=== PATIENT | male | born 1960 | race Asian ===

== ENCOUNTER 2018-03-24 14:49 | Observation (INO) | payer OTHER ==
[~2018-03-24] VITALS: Ht 170.2 cm; Wt 70.0 kg
[2018-03-24 15:38] VITALS: BP 126/72; PULSE 74; RESP 16; TEMP 98; O2SAT 95
[2018-03-24] MEDS ORDERED: SODIUM CHLOR 0.9% 1000 ML INJ 1,000 ML IV ONE ×2 (16:28→18:00)
[2018-03-24] MEDS ORDERED: SODIUM CHLORIDE 0.9% FLUSH 10 ML FLUSH IVF PRN (16:30)
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
--- NOTE | 2018-03-24 17:32 | RADRPT ---
EXAM DATE: 03/24/2018 5:24 PM EDT AGE/SEX: 57 years / Male INDICATIONS: Found unresponsive CLINICAL DATA: This is the patient's initial encounter. Patient reports that signs and symptoms have been present for 1 day and indicates a pain score of Nonresponsive. MEDICAL/SURGICAL HISTORY: Non-responsive. Non-responsive. RADIATION DOSE: 66.34 CTDI (mGy) COMPARISON: No prior exams available for comparison. TECHNIQUE: CT of the head without contrast. Using automated exposure control and adjustment of the mA and/or kV according to patient size, radiation dose was kept as low as reasonably achievable to ob tain optimal diagnostic quality images. FINDINGS: Porencephaly right orbital frontal region. Minimal porencephalic changes right occipital region. Lacu kash infarct basal ganglia left side. There is no parenchymal hemorrhage mass effect or midline shift. Ventricular size is appropriate. Posterior fossa is unremarkable. CONCLUSION: 1. 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 2. Negative for an acute process. Electronically signed by: Shalom Petersen MD 03/24/2018 5:30 PM EDT
[2018-03-24 17:41] LABS: AUTOMATED NEUTROPHIL # 17.7 TH/MM3 (1.8-7.7); BASOPHIL # 0.1 TH/MM3 (0-0.2); BASOPHIL % 0.3 % (0.0-2.0); EOSINOPHIL # 0.1 TH/MM3 (0-0.4); EOSINOPHIL % 0.3 % (0.0-4.0); HEMATOCRIT 48.2 % (39.0-51.0); HEMOGLOBIN 16.6 GM/DL (13.0-17.0); LYMPH % 4.4 % (9.0-44.0); LYMPHOCYTE # 0.9 TH/MM3 (1.0-4.8); MEAN CELL VOLUME 87.1 FL (80.0-100.0); MEAN CORPUSCULAR HGB CONC 34.4 % (32.0-36.0); MEAN PLATELET VOLUME 8.9 FL (7.0-11.0); MONO % 3.9 % (0.0-8.0); MONOCYTE # 0.7 TH/MM3 (0-0.9); NEUT % 91.1 % (16.0-70.0); PLATELET COUNT 259 TH/MM3 (150-450); RED BLOOD COUNT 5.54 MIL/MM3 (4.50-5.90); RED CELL DISTRIBUTION WIDTH 12.7 % (11.6-17.2); WHITE BLOOD COUNT 19.4 TH/MM3 (4.0-11.0)
--- NOTE | 2018-03-24 17:50 | RADRPT ---
EXAM DATE: 03/24/2018 5:01 PM EDT AGE/SEX: 57 years / Male INDICATIONS: Palpitations. CLINICAL DATA: This is the patient's initial encounter. Patient reports that signs and symptoms have been present for 1 day and indicates a pain score of 2/10. MEDICAL/SURGICAL HISTORY: None. None. COMPARISON: No prior exams available for comparison. FINDINGS: A single AP view of the chest demonstrates the lungs to be symmetrically aerated without evidence of mass, infiltrate or effusion. The cardiomediastinal contours are unremarkable. Osseous structures a re intact. CONCLUSION: Negative for an acute process Electronically signed by: Shalom Petersen MD 03/24/2018 5:49 PM EDT
[2018-03-24 17:51] LABS: PROTHROMBIN TIME - PATIENT 9.7 SEC (9.8-11.6)
[2018-03-24 17:55] LABS: ALT (GPT) 36 U/L (12-78); AST (GOT) 20 U/L (15-37); BICARBONATE 22.6 MEQ/L (21.0-32.0); BLOOD UREA NITROGEN 14 MG/DL (7-18); CALCIUM 8.6 MG/DL (8.5-10.1); CHLORIDE 101 MEQ/L (98-107); CREATININE 1.31 MG/DL (0.60-1.30); GLOMERULAR FILTRATION RATE 57 ML/MIN (>89); GLUCOSE,RANDOM 348 MG/DL (74-106); SODIUM (NA) 134 MEQ/L (136-145)
[2018-03-24 17:59] LABS: ALKALINE PHOSPHATASE 68 U/L (45-117); TOTAL BILIRUBIN ADULT 0.9 MG/DL (0.2-1.0); TOTAL PROTEIN 7.8 GM/DL (6.4-8.2); TROPONIN I LESS THAN 0.02 NG/ML (0.02-0.05)
[2018-03-24 19:53] LABS: BILIRUBIN, URINE NEG (NEG); BLOOD, URINE NEG (NEG); GLUCOSE,URINE 1000 mg/dL (NEG); KETONE, URINE TRACE mg/dL (NEG); NITRITE,URINE NEG (NEG); URINE COLOR LIGHT-YELLOW (YELLW/STRAW); URINE LEUKOCYTE ESTERASE NEG (NEG)
[2018-03-24 20:54] VITALS: BP 141/77; PULSE 77; RESP 16; O2SAT 98
[2018-03-24 20:56] VITALS: O2SAT 97
[2018-03-24] MEDS ORDERED: METF1000 PO (20:56)
[2018-03-24] MEDS ORDERED: LISI-515 PO (20:56)
[2018-03-24] MEDS ORDERED: EMPA1TAB3 PO (20:56)
[2018-03-24] MEDS ORDERED: SIMV20TA PO (20:56)
[2018-03-24] MEDS ORDERED: DEXTROSE 50% IN WATER 50 ML VIAL(D50) IV PUSH PRN (21:30)
[2018-03-24] MEDS ORDERED: SODIUM CHLORIDE 0.9% FLUSH 10 ML FLUSH IV FLUSH PRN (21:30)
[2018-03-24] MEDS ORDERED: GLUCAGON 1 MG/ML VIAL OTHER PRN (21:30)
[2018-03-24 22:06] VITALS: BP 141/74; PULSE 67; RESP 16; TEMP 98.7; O2SAT 98
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
[2018-03-25] VITALS (10 sets, daily range): BP systolic 112–185; BP diastolic 56–86; PULSE 56–71; RESP 16–20; TEMP 98–98.8; O2SAT 97–98
--- NOTE | 2018-03-25 00:02 | RADRPT ---
EXAM DATE: 03/24/2018 11:24 PM EDT AGE/SEX: 57 years / Male INDICATIONS: Syncope. CLINICAL DATA: This is the patient's initial encounter. Patient reports that signs and symptoms have been present for 1 day and indicates a pain score of 0/10. MEDICAL/SURGICAL HISTORY: . Diabetes. . COMPARISON: No prior exams available for comparison. VELOCITY PARAMETERS: ICA/CCA Ratio: Right 0.6 , Left 0.6 ICA: Right 48 cm/sec, Left 36 cm/sec CCA: Right 85 cm/sec, Left 64 cm/sec ECA: Right 58 cm/sec, Left 90 cm/sec Vertebral: Right 50 cm/sec antegrade, Left 28 cm/sec antegrade FINDINGS: Right Carotid: No significant stenosis is visualized. The waveforms are within normal limits. Poor visualization of distal ICA. Left Carotid: No significant stenosis is visualized. The waveforms are within normal limits. Other: None. CONCLUSION: 1. Right Internal Carotid Artery: No evidence of hemodynamically significant carotid stenosis. Poor visualization of distal ICA. 2. Left Internal Carotid Artery: No evidence of hemodynamically significant carotid stenosis. Electronically signed by: Chaitanya Flores MD 03/25/2018 12:00 AM EDT
--- NOTE | 2018-03-25 05:10 | EKG ---
Date Performed: 03/24/2018 Time Performed: 19:51:54 PTAGE: 57 years EKG: Baseline artifact present Sinus rhythm NORMAL ECG NO PREVIOUS TRACING DOCTOR: Jose Quezada Interpretating Date/Time 03/25/2018 05:10:01
[2018-03-25 07:04] LABS: AUTOMATED NEUTROPHIL # 8.1 TH/MM3 (1.8-7.7); BASOPHIL % 0.3 % (0.0-2.0); EOSINOPHIL # 0.2 TH/MM3 (0-0.4); EOSINOPHIL % 1.6 % (0.0-4.0); HEMATOCRIT 44.4 % (39.0-51.0); HEMOGLOBIN 15.5 GM/DL (13.0-17.0); LYMPH % 12.2 % (9.0-44.0); LYMPHOCYTE # 1.2 TH/MM3 (1.0-4.8); MEAN CELL VOLUME 86.1 FL (80.0-100.0); MEAN CORPUSCULAR HEMOGLOBIN 30.1 PG (27.0-34.0); MEAN CORPUSCULAR HGB CONC 34.9 % (32.0-36.0); MEAN PLATELET VOLUME 8.6 FL (7.0-11.0); MONO % 4.7 % (0.0-8.0); MONOCYTE # 0.5 TH/MM3 (0-0.9); NEUT % 81.2 % (16.0-70.0); PLATELET COUNT 217 TH/MM3 (150-450); RED BLOOD COUNT 5.16 MIL/MM3 (4.50-5.90); RED CELL DISTRIBUTION WIDTH 12.8 % (11.6-17.2)
[2018-03-25 07:18] LABS: BICARBONATE 24.6 MEQ/L (21.0-32.0); CALCIUM 7.8 MG/DL (8.5-10.1); CREATININE 0.87 MG/DL (0.60-1.30)
[2018-03-25] MEDS: SODIUM CHLOR 0.9% 1000 ML INJ 1,000 ML IV SCH ×3 (08:00→19:07)
[2018-03-25] MEDS ORDERED: NON-FORMULARY DRUG (Simvastatin 20 MG) PO SCH (09:00)
[2018-03-25 09:11] LABS: TROPONIN I LESS THAN 0.02 NG/ML (0.02-0.05)
[2018-03-25] MEDS: ATORVASTATIN 40 MG TAB PO SCH (09:42)
[2018-03-25] MEDS: INSULIN ASPART SUPPLEMENTAL SCALE SQ SCH ×4 (09:42→21:59)
[2018-03-25] MEDS: SODIUM CHLORIDE 0.9% FLUSH 10 ML FLUSH IV FLUSH SCH ×2 (09:43→21:00)
[2018-03-25] MEDS: LISINOPRIL 20 MG TAB PO SCH (09:43)
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
[2018-03-25] MEDS ORDERED: INSULIN DETEMIR 100 UNITS/ML VIAL SQ ONE (13:30)
[2018-03-25] MEDS ORDERED: GADODIAMIDE PF 287 MG/ML 5 ML VIAL (for RAD MRI) IVCONTRAST ONE (13:44)
--- NOTE | 2018-03-25 15:01 | PD.CONS ---
HPI Consult Requested By Dr Ruff Reason for Consult syncope Primary Care Physician No Primary Care Physician History of Present Illness 57-year-old Mandarin speaking Occitan gentleman with diabetes mellitus, hypertension, hyperlipidemia and peripheral vascular disease presented to the emergency department 03/24/18 following a syncopal episode. Using official translation line to obtain HPI, this is the patient's third episode of syncope. The patient had loss of consciousness occurring in June and January as well. He reports that the event in June occurred at around 7 AM when he was making breakfast. He was standing up and suddenly lost consciousness after feeling brief lightheadedness. The event was witnessed by his who he states described stereotypical tonic-clonic motions and incontinence of bladder and tongue biting. He was evaluated at [facility]. By his account he was told he may have had a small stroke as the diagnosis and was discharged. The second episode in January was similar in nature however he did not have any tongue biting or loss of bladder. 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 He did not sustain any injuries as the car was parked prior to his losing consciousness. He was found by bystanders and EMS was called who transported him to the hospital. The patient has no memory of the event until awakening in the hospital. He denies any chest pain, palpitations or shortness of breath. No abdominal pain. No nausea/vomiting/ diarrhea. No fevers/chills. No lateralizing signs/symptoms. No residual muscle weakness, slurred speech or facial droop. He feels well currently except for a sensation of muscle tightness in his upper back and low neck. 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 Negative for acute process. Chest x-ray 03/24: No acute cardiopulmonary process Brain MRI 03/25: Pending Laboratories reveal leukocytosis with left shift WBC 19,000 otherwise normal EKG reveals normal sinus rhythm with no ST-T wave abnormality. Telemetry review reveals sinus rhythm/sinus bradycardia with no arrhythmia or prolonged pauses. Review of Systems 10 point review of systems is negative other than noted in the HPI. Currently feels well. Past Family Social History Allergies: Coded Allergies: No Allergy Information Available (Unverified , 03/24/18) PATIENT SPEAKS MALIAN Past Medical History Diabetes mellitus Hypertension Hyperlipidemia Peripheral vascular disease Past Surgical History Right lower extremity bypass Reported Medications Reported Meds & Active Scripts Active Reported Jardiance (Empagliflozin) 25 Mg Tab 25 Mg PO DAILY Metformin (Metformin HCl) 1,000 Mg Tab 1,000 Mg PO BIDPC Lisinopril 20 Mg Tab 20 Mg PO DAILY Simvastatin 20 Mg Tab 20 Mg PO DAILY Active Ordered Medications Current Medications Medications (Trade) Dose Ordered Sig/[place] Route Start Time Stop Time Status Last Admin (NS Flush) 2 ml UNSCH PRN IVF 03/24/18 16:30 Sodium Chloride 1,000 ml @ 100 mls/hr Q10H IV 03/24/18 22:00 (NS Flush) 2 ml UNSCH PRN IV FLUSH 03/24/18 21:30 (NS Flush) 2 ml BID IV FLUSH 03/25/18 09:00 (Prinivil) 20 mg DAILY PO 03/25/18 09:00 03/25/18 09:43 (D50w (Vial) Inj) 50 ml UNSCH PRN IV PUSH 03/24/18 21:30 (Glucagon Inj) 1 mg UNSCH PRN OTHER 03/24/18 21:30 (NovoLOG SUPPLEMENTAL SCALE) 1 ACHS SLIDING SCALE SQ 03/25/18 08:00 03/25/18 14:42 (Lipitor) 40 mg DAILY PO 03/25/18 09:00 03/25/18 09:42 (Levemir Inj) 5 units Q12HR SQ 03/25/18 21:00 Family History Father with CAD Social History Smokes a half a pack per day. Drinks 1 glass of wine daily. Denies illicit drugs. Physical Exam Vital Signs Vital Signs Date Time Temp Pulse Resp B/P (MAP) Pulse Ox O2 Delivery O2 Flow Rate FiO2 03/25/18 12:00 98.7 67 18 137/81 (99) 97 03/25/18 08:00 98.2 70 16 124/56 (78) 97 03/25/18 07:16 71 03/25/18 05:31 98.2 62 16 153/76 (101) 98 03/25/18 01:34 98.2 62 17 139/79 (99) 98 03/24/18 22:06 98.7 67 16 141/74 (96) 98 03/24/18 21:46 03/24/18 20:56 97 Room Air 03/24/18 20:54 77 16 141/77 (98) 98 Room Air 03/24/18 15:38 98.0 74 16 126/72 (90) 95 Physical Exam GENERAL: Well-developed well-nourished. In no acute distress. NECK: No carotid bruits. No JVD. CARDIOVASCULAR: Regular rate and rhythm. No murmur appreciated. RESPIRATORY: No accessory muscle use. Clear to auscultation. Breath sounds equal bilaterally. MUSCULOSKELETAL: No clubbing or cyanosis. No edema. NEUROLOGICAL: Awake and alert. 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 Laboratory Laboratory Tests Test 03/24/18 17:18 03/24/18 19:21 03/25/18 05:35 White Blood Count 19.4 10.0 Red Blood Count 5.54 5.16 Hemoglobin 16.6 15.5 Hematocrit 48.2 44.4 Mean Corpuscular Volume 87.1 86.1 Mean Corpuscular Hemoglobin 30.0 30.1 Mean Corpuscular Hemoglobin Concent 34.4 34.9 Red Cell Distribution Width 12.7 12.8 Platelet Count 259 217 Mean Platelet Volume 8.9 8.6 Neutrophils (%) (Auto) 91.1 81.2 Lymphocytes (%) (Auto) 4.4 12.2 Monocytes (%) (Auto) 3.9 4.7 Eosinophils (%) (Auto) 0.3 1.6 Basophils (%) (Auto) 0.3 0.3 Neutrophils # (Auto) 17.7 8.1 Lymphocytes # (Auto) 0.9 1.2 Monocytes # (Auto) 0.7 0.5 Eosinophils # (Auto) 0.1 0.2 Basophils # (Auto) 0.1 0.0 CBC Comment DIFF FINAL DIFF FINAL Differential Comment Prothrombin Time 9.7 Prothromb Time International Ratio 1.0 Activated Partial Thromboplast Time 21.8 Blood Urea Nitrogen 14 12 Creatinine 1.31 0.87 Random Glucose 348 201 Total Protein 7.8 Albumin 4.0 Calcium Level 8.6 7.8 Magnesium Level 2.0 Alkaline Phosphatase 68 Aspartate Amino Transf (AST/SGOT) 20 Alanine Aminotransferase (ALT/SGPT) 36 Total Bilirubin 0.9 Sodium Level 134 139 Potassium Level 4.9 3.7 Chloride Level 101 105 Carbon Dioxide Level 22.6 24.6 Anion Gap 10 9 Estimat Glomerular Filtration Rate 57 91 Total Creatine Kinase 87 314 Troponin I LESS THAN 0.02 LESS THAN 0.02 Ethyl Alcohol Level LESS THAN 3 Urine Color LIGHT-YELLOW Urine Turbidity CLEAR Urine pH 5.0 Urine Specific [place] 1.027 Urine Protein NEG Urine Glucose (UA) 1000 Urine Ketones TRACE Urine Occult Blood NEG Urine Nitrite NEG Urine Bilirubin NEG Urine Urobilinogen LESS THAN 2.0 Urine Leukocyte Esterase NEG Urine WBC 1 Microscopic Urinalysis Comment CULT NOT INDICATED Urine Opiates Screen NEG Urine Barbiturates Screen NEG Urine Amphetamines Screen NEG Urine Benzodiazepines Screen NEG Urine Cocaine Screen NEG Urine Cannabinoids Screen NEG Creatine Kinase MB 1.2 Creatine Kinase MB % 0.4 Result Diagram: 03/25/18 0535 03/25/18 0535 Imaging Last Impressions Head CT 03/24/18 1628 Signed Impressions: CONCLUSION: 1. 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 2. Negative for an acute process. Chest X-Ray 03/24/181627 Signed Impressions: CONCLUSION: Negative for an acute process Carotid Artery Ultrasound 03/24/18 0000 Signed Impressions: CONCLUSION: 1. Right Internal Carotid Artery: No evidence of hemodynamically significant c arotid stenosis. Poor visualization of distal ICA. 2. Left Internal Carotid Artery: No evidence of hemodynamically significant ca rotid stenosis. Assessment and Plan Assessment and Plan Recurrent syncope: -His episodes sound most convincing of that of primary neurologic disorder, seizure disorder, possibly epilepsy. -Recommend neurology consultation. Brain MRI pending. Echocardiogram is pending though I assume it will likely be normal with normal cardiovascular examination. -Recommend 30 day cardiac event monitor to evaluate for potential ventricular arrhythmia that could lead to transient hypoxemia leading to seizure disorder. Outpatient cardiac loop recorder may be appropriate. We will sign off. Jaret Cervantes DO Mar 25, 2018 15:01
[2018-03-25] MEDS ORDERED: ACETAMINOPHEN 325 MG TAB PO PRN (16:00)
--- NOTE | 2018-03-25 16:06 | PD.CONS ---
History of Present Illness Service Neurology Consult Requested By Medical for syncope possible seizure Primary Care Physician No Primary Care Physician History of Present Illness 57-year-old male admitted for syncopal episodes. Informant information obtained from medical chart patient's family is not around his oriental can speak much Welsh. From some description in the chart. The patient has syncopal episode some possible shaking associated with it. There is also mention that the patient was a [facility] had imaging performed which showed a small stroke. None of that is available at the present time. Patient currently looks comfortable does not denies any headache or weakness History obtained from medical chart due to language barrier. Review of Systems Except as stated in HPI: all other systems reviewed are Neg Past Family Social History Past Medical History Diabetes mellitus Hypertension Hyperlipidemia Peripheral vascular disease Past Surgical History Right lower extremity bypass Reported Medications Reported Meds & Active Scripts Active Reported Jardiance (Empagliflozin) 25 Mg Tab 25 Mg PO DAILY Metformin (Metformin HCl) 1,000 Mg Tab 1,000 Mg PO BIDPC Lisinopril 20 Mg Tab 20 Mg PO DAILY Simvastatin 20 Mg Tab 20 Mg PO DAILY Allergies: Coded Allergies: No Allergy Information Available (Unverified , 03/24/18) PATIENT SPEAKS TURKMEN Family History Father with CAD Social History Smokes a half a pack per day. Drinks 1 glass of wine daily. Denies illicit drugs. Review of Systems All other ROS: ROS reviewed as documented in chart Past Family Social History Allergies: Coded Allergies: No Allergy Information Available (Unverified , 03/24/18) PATIENT SPEAKS TURKMEN Active Ordered Medications Current Medications Medications (Trade) Dose Ordered Sig/[place] Route Start Time Stop Time Status Last Admin (NS Flush) 2 ml UNSCH PRN IVF 03/24/18 16:30 Sodium Chloride 1,000 ml @ 100 mls/hr Q10H IV 03/24/18 22:00 (NS Flush) 2 ml UNSCH PRN IV FLUSH 03/24/18 21:30 (NS Flush) 2 ml BID IV FLUSH 03/25/18 09:00 (Prinivil) 20 mg DAILY PO 03/25/18 09:00 03/25/18 09:43 (D50w (Vial) Inj) 50 ml UNSCH PRN IV PUSH 03/24/18 21:30 (Glucagon Inj) 1 mg UNSCH PRN OTHER 03/24/18 21:30 (NovoLOG SUPPLEMENTAL SCALE) 1 ACHS SLIDING SCALE SQ 03/25/18 08:00 03/25/18 14:42 (Lipitor) 40 mg DAILY PO 03/25/18 09:00 03/25/18 09:42 (Levemir Inj) 5 units Q12HR SQ 03/25/18 21:00 (Tylenol) 650 mg Q4H PRN PO 03/25/18 16:00 UNV Exam I&O / VS Vital Signs Date Time Temp Pulse Resp B/P (MAP) Pulse Ox O2 Delivery O2 Flow Rate FiO2 03/25/18 14:56 66 03/25/18 14:53 98.8 60 20 185/86 (119) 98 129/77 (94) 155/84 (107) 03/25/18 12:00 98.7 67 18 137/81 (99) 97 03/25/18 08:00 98.2 70 16 124/56 (78) 97 03/25/18 07:16 71 03/25/18 05:31 98.2 62 16 153/76 (101) 98 03/25/18 01:34 98.2 62 17 139/79 (99) 98 03/24/18 22:06 98.7 67 16 141/74 (96) 98 03/24/18 21:46 03/24/18 20:56 97 Room Air 03/24/18 20:54 77 16 141/77 (98) 98 Room Air Eye: EOMI Respiratory: Non-labored respirations Cardiology: No murmur Neurologic: Alert, Normal sensory, Normal motor, No focal defects, CN II-XII intact, Normal DTR's Psychiatric: Cooperative, Appropriate mood & affect Review/Management Diagnosis/Plan: (1) Episode of syncope ICD Codes: R55 - Syncope and collapse Status: Acute Plan: Recurrent syncope history Limited history from patient family not available further try to communicate with them Recommendations EEG MRI brain Orthostatics TSH Consider Keppra; pending above Seizure fall precautions. No driving or operating any heavy machinery swimming alone for at least 6 months of being seizure spell free. Problem Qualifiers (1) Episode of syncope: Qualified Codes: R55 - Syncope and collapse Rafa Ambriz MD Mar 25, 2018 16:06
--- NOTE | 2018-03-25 16:24 | RADRPT ---
EXAM DATE: 03/25/2018 1:50 PM EDT AGE/SEX: 57 years / Male INDICATIONS: . Syncope. CLINICAL DATA: This is the patient's subsequent encounter. Patient reports that signs and symptoms h ave been present for 2 days and indicates a pain score of 0/10. MEDICAL/SURGICAL HISTORY: Hypertension. Diabetes mellitus type II. Appendectomy. COMPARISON: [facility] [place], CTA BRAIN W 3D RECON, 03/25/2018. . TECHNIQUE: Multiplanar, multisequence examination of the brain was performed without and with 14 ml O mniscan (gadodiamide) contrast as a single exam dose. FINDINGS: The examination demonstrates an area of encephalomalacia involving the medial aspect of the right fro ntal lobe. There is surrounding gliosis. Findings would be most consistent with an old area of cortic al infarct there is a second area of encephalomalacia involving the watershed distribution posteriorl y on the right. Diffusion restricted imaging is provided. No findings to indicate acute cortical infarction are ident ified. The ventricles are normal in size and configuration. No abnormal extra-axial fluid collections are se en. The appearance of the posterior fossa is unremarkable. The visualized portion of orbit and sinus are intact. CONCLUSION: 1. 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 No findings to indicate acute infarction are evident. Electronically signed by: Rogelio Petersen MD 03/25/2018 4:23 PM EDT
[2018-03-25] MEDS ORDERED: IOHEXOL 350 MG/ML 10 ML VIAL (for RAD DIAG) IVCONTRAST ONE (16:39)
[2018-03-25 17:27] LABS: HEMOGLOBIN A1C 9.2 % (4.3-6.0)
--- NOTE | 2018-03-25 17:39 | RADRPT ---
EXAM DATE: 03/25/2018 5:28 PM EDT AGE/SEX: 57 years / Male INDICATIONS: Syncope. CLINICAL DATA: This is the patient's initial encounter. Patient reports that signs and symptoms have been present for 1 day and indicates a pain score of 4/10. MEDICAL/SURGICAL HISTORY: Hypertension. Diabetes. None. RADIATION DOSE: 28.82 CTDI (mGy) ; Combined studies COMPARISON: No prior exams available for comparison. TECHNIQUE: Volumetric scanning was performed using a multi-row detector CT scanner during bolus infu gabino of 75 ml Omnipaque 350 (iohexol) nonionic water-soluble contrast as a single exam dose. The d maxi was post processed with a variety of visualization algorithms including full volume maximum inten sity projection, multi-planar sliding thin slab reformation, curved planar reformation, and surface r endering techniques. Using automated exposure control and adjustment of the mA and/or kV according t o patient size, radiation dose was kept as low as reasonably achievable to obtain optimal diagnostic quality images. FINDINGS: There is excellent visualization of the major intracranial arteries out to the second-order branch ve ssels. There is no evidence for aneurysm, vessel truncation or stenosis, and no evidence for vascula r malformation. CONCLUSION: 1. Unremarkable exam. Electronically signed by: Beni Mishra MD 03/25/2018 5:37 PM EDT
--- NOTE | 2018-03-25 17:45 | RADRPT ---
EXAM DATE: 03/25/2018 5:28 PM EDT AGE/SEX: 57 years / Male INDICATIONS: Syncope, neck pain. CLINICAL DATA: This is the patient's initial encounter. Patient reports that signs and symptoms have been present for 1 day and indicates a pain score of 4/10. MEDICAL/SURGICAL HISTORY: Hypertension. Diabetes. None. RADIATION DOSE: 28.82 CTDI (mGy) ; Combined studies COMPARISON: No prior exams available for comparison. TECHNIQUE: Volumetric scanning was performed using a multirow detector CT scanner during bolus infus ion of 75 ml Omnipaque 350 (iohexol) nonionic water-soluble contrast as a single exam dose. The da ta was postprocessed with a variety of visualization algorithms including full-volume maximum intensi ty projection, multiplanar sliding thin-slab reformation, curved-planar reformation, and surface-rend ering techniques. Using automated exposure control and adjustment of the mA and/or kV according to p atient size, radiation dose was kept as low as reasonably achievable to obtain optimal diagnostic urvashi lity images. FINDINGS: Aortic Arch: There is a three-vessel origin of the great vessels from the aorta. No evidence of ost ial narrowing Right Carotid: The common carotid artery is intact. The carotid bulb has a normal configuration wit hout ulceration or narrowing. The internal carotid artery lumen is smooth without stenosis. The ext ernal carotid artery is intact. Left Carotid: The common carotid artery is intact. The carotid bulb has a normal configuration with out ulceration or narrowing. Noncalcified atheromatous plaque is seen involving the origin of the ICA . No ulceration or luminal narrowing utilizing NASCET criteria.. There is smooth luminal narrowing in volving the petrous portion of the ICA. This generates a 40% stenosis. The external carotid artery is intact. Vertebrals: The vertebral arteries have a symmetric diameter. No stenotic lesions are seen. Elevated flow velocities and ICA/CCA ratios have been found to correlate with increased degrees of ve ssel stenosis, calculated as percentage of diameter relative to a normal segment of distal ICA/CCA. CONCLUSION: 1. 40% stenosis involving the petrous portion of the left ICA. The proximal left carotid and right c arotid are patent. 2. Patent vertebral arteries bilaterally. Electronically signed by: Beni Mishra MD 03/25/2018 5:43 PM EDT
[2018-03-25] MEDS: INSULIN DETEMIR 100 UNITS/ML VIAL SQ SCH (21:59)
[2018-03-26] VITALS (10 sets, daily range): BP systolic 114–155; BP diastolic 59–85; PULSE 48–64; RESP 16–18; TEMP 97.5–98.9; O2SAT 97–98
[2018-03-26] MEDS: SODIUM CHLOR 0.9% 1000 ML INJ 1,000 ML IV SCH ×2 (01:24→13:49)
[2018-03-26] MEDS: LISINOPRIL 20 MG TAB PO SCH (07:53)
[2018-03-26] MEDS: ATORVASTATIN 40 MG TAB PO SCH (07:53)
[2018-03-26] MEDS: SODIUM CHLORIDE 0.9% FLUSH 10 ML FLUSH IV FLUSH SCH ×2 (07:54→21:00)
[2018-03-26] MEDS: INSULIN ASPART SUPPLEMENTAL SCALE SQ SCH ×4 (09:15→21:04)
[2018-03-26] MEDS: INSULIN DETEMIR 100 UNITS/ML VIAL SQ SCH ×2 (09:16→21:04)
--- NOTE | 2018-03-26 16:10 | HHI.PR ---
Subjective Remarks Patient seen using [employer]PD director digital catalogue over the phone. Patient says he is feeling all right. Denies any chest pain shortness of breath. Denies nausea or vomiting. No lightheadedness or weakness. Objective Vital Signs Date Time Temp Pulse Resp B/P (MAP) Pulse Ox O2 Delivery O2 Flow Rate FiO2 03/26/18 14:25 97.5 62 18 118/66 (83) 98 03/26/18 08:00 53 03/26/18 07:57 97.8 60 18 125/59 (81) 97 155/79 (104) 154/85 (108) 03/26/18 04:17 98.1 60 16 137/78 (97) 97 03/26/18 03:44 48 03/26/18 00:00 51 03/25/18 23:31 98.0 56 16 112/61 (78) 97 03/25/18 20:03 98.1 58 18 133/77 (95) 98 03/25/18 20:00 57 I/O 03/25/18 03/25/18 03/25/18 03/26/18 03/26/18 03/26/18 07:00 15:00 23:00 07:00 15:00 23:00 Intake Total 480 ml 2500 ml Balance 480 ml 2500 ml Intake Oral 480 ml 500 ml IV Total 2000 ml # Voids 2 3 # Bowel Movements 1 Result Diagram: 03/25/18 0535 03/25/18 0535 Objective Remarks GENERAL: Patient lying in bed. Appears comfortable. No change from yesterday. SKIN: Warm and dry. HEAD: Normocephalic. EYES: No scleral icterus. No injection or drainage. NECK: Supple, trachea midline. No JVD. CARDIOVASCULAR: Regular rate and rhythm without murmurs, gallops, or rubs. RESPIRATORY: Breath sounds equal bilaterally. No accessory muscle use. GASTROINTESTINAL: Abdomen soft, non-tender, nondistended. MUSCULOSKELETAL: No cyanosis, or edema. BACK: Nontender without obvious deformity. No CVA tenderness. A/P Assessment and Plan //Syncope Unclear etiology Head CT negative for acute process, shows focal areas likely from remote trauma Syncope workup pending; carotid ultrasound and echo pending = Neurology feels that this may be seizure. CTA unremarkable. EEG and echo still pending. Will need Keppra at discharge. //Leukocytosis Patient with leukocytosis with left shift Chest x-ray negative for acute process UA negative Monitor = Resolved. Likely stress related. // Diabetes mellitus Sliding-scale insulin Monitor blood glucose //Hypertension/hyperlipidemia //Patient may have orthostatic hypotension. Initial measurement yesterday with systolic blood pressures 180s lying down, 120 standing up, however today questionable findings of supine blood pressure lower with standing blood pressure higher. Continue home medications Follow-up with primary care as outpatient. //AK I Creatinine 1.34, no baseline for comparison IV fluid hydration Monitor renal function = Resolved . FEN Heart healthy diet Electrolytes: Monitor and replete as needed NS at 100 cc/hour Discharge Planning Cardiology has cleared. Follow-up cardiology as outpatient. We will need neurology follow-up as outpatient May need Chan. Pending EEG, echocardiogram. Luis Ruff MD Mar 26, 2018 16:10
--- NOTE | 2018-03-26 17:08 | ECHRPT ---
Indication: SYNCOPE CONCLUSIONS Normal left ventricular size. Wall thickness is measured at the upper limits of normal. The left ventricular systolic function is hyperdynamic with an estimated ejection fraction in the ra nge of 65- 70%. Normal wall motion. There is mild tricuspid valve regurgitation. The estimated pulmonary arterial pressure is 32 mmHg. BP: 124 / 56 HR: 70 Rhythm: Sinus MEASUREMENTS (Male / Female) Normal Values Technical Quality:Fair 2D ECHO LV Diastolic Diameter PLAX 4.8 cm 4.2 - 5.9 / 3.9 - 5.3 cm LV Systolic Diameter PLAX 3.1 cm IVS Diastolic Thickness 0.9 cm 0.6 - 1.0 / 0.6 - 0.9 cm LVPW Diastolic Thickness 0.9 cm 0.6 - 1.0 / 0.6 - 0.9 cm LV Relative Wall Thickness 0.4 RV Internal Dim ED PLAX 2.1 cm LVOT Diameter 1.8 cm Aortic Root Diameter 2.6 cm LA Systolic Diameter LX 4.2 cm 3.0 - 4.0 / 2.7 - 3.8 cm M-MODE AV Cusp Separation MM 1.7 cm DOPPLER AV Peak Velocity 159.0 cm/s AV Peak Gradient 10.1 mmHg AV Mean Gradient 5.0 mmHg AV Velocity Time Integral 26.4 cm LVOT Peak Velocity 80.5 cm/s LVOT Peak Gradient 2.6 mmHg LVOT Velocity Time Integral 17.0 cm AV Area Cont Eq vti 1.6 cm AV Area Cont Eq pk 1.3 cm Mitral E Point Velocity 69.6 cm/s Mitral A Point Velocity 55.3 cm/s Mitral E to A Ratio 1.3 TR Peak Velocity 235.0 cm/s TR Peak Gradient 22.1 mmHg Right Atrial Pressure 10.0 mmHg Pulmonary Artery Systolic Pressu 32.1 mmHg Right Ventricular Systolic Press 32.1 mmHg PV Peak Velocity 78.2 cm/s PV Peak Gradient 2.4 mmHg FINDINGS LEFT VENTRICLE Normal left ventricular size. Wall thickness is measured at the upper limits of normal. The left ventricular systolic function is hyperdynamic with an estimated ejection fraction in the ra nge of 65- 70%. Normal wall motion. RIGHT VENTRICLE Normal right ventricular size and systolic function. LEFT ATRIUM The left atrial size is normal. RIGHT ATRIUM The right atrial size is normal. ATRIAL SEPTUM No atrial level shunt is demonstrated by color flow Doppler interrogation. AORTA The aortic root and proximal ascending aorta are normal in size on limited imaging. MITRAL VALVE Trace mitral valve regurgitation. AORTIC VALVE Trileaflet aortic valve. No aortic valve stenosis or regurgitation. TRICUSPID VALVE There is mild tricuspid valve regurgitation. The estimated pulmonary arterial pressure is 32 mmHg. PULMONARY VALVE Trivial pulmonary valve regurgitation. VESSELS The inferior vena cava was not well visualized. PERICARDIUM No pericardial effusion. Beni Castelan MD (Electronically Signed) Final Date:26 March 2018 17:07
--- NOTE | 2018-03-26 21:31 | MG ---
cc: Rafa Ambriz MD, Mandeep MD EEG NUMBER [id number] 7-9 Hz posterior rhythm 20-40 microvolts low-amplitude beta in the frontal channels. Good anterior to posterior gradient. Attenuation and generalized slowing suggestive of drowsy state. There is some reduced driving with photic stimulation. Delta theta bursts occurring paroxysmally. Myogenic artifact in the right frontotemporal region occurring. Vertex waves suggests a stage I sleep. Single lead EKG showing sinus rhythm. INTERPRETATION: Normal awake, sleep electroencephalogram. Clinical correlation. MD RUTHIE Edmonds/ , 09:05 PM , 09:30 PM
[2018-03-27] VITALS (7 sets, daily range): BP systolic 123–166; BP diastolic 68–78; PULSE 53–67; RESP 16–18; TEMP 97.9–98.6; O2SAT 97–99
[2018-03-27] MEDS: SODIUM CHLOR 0.9% 1000 ML INJ 1,000 ML IV SCH ×2 (01:15→10:00)
[2018-03-27] MEDS ORDERED: LEVE500 PO (08:28)
[2018-03-27] MEDS ORDERED: LEVEMIR SQ (08:28)
[2018-03-27] MEDS ORDERED: NOVOLOGSS SQ (08:28)
[2018-03-27] MEDS ORDERED: levETIRAcetam 500 MG TAB PO SCH (08:37)
--- NOTE | 2018-03-27 09:15 | HHI.PR ---
Subjective Remarks Patient seen using [employer] historical interpreter over the phone. Patient says he is feeling well. Would like to go home. Denies any chest pain or shortness of breath. Denies any lightheadedness. Objective Vital Signs Date Time Temp Pulse Resp B/P (MAP) Pulse Ox O2 Delivery O2 Flow Rate FiO2 03/27/18 09:00 67 03/27/18 08:38 97.9 65 17 166/78 (107) 99 03/27/18 08:36 97.9 66 18 123/68 (86) 99 03/27/18 08:35 97.9 63 18 141/75 (97) 97 03/27/18 00:15 98.6 61 16 140/74 (96) 97 03/27/18 00:00 53 03/26/18 20:00 62 03/26/18 19:46 98.4 61 16 114/62 (79) 98 03/26/18 17:08 98.9 60 18 116/65 (82) 97 03/26/18 16:05 64 03/26/18 14:25 97.5 62 18 118/66 (83) 98 I/O 03/26/18 03/26/18 03/26/18 03/27/18 03/27/18 03/27/18 07:00 15:00 23:00 07:00 15:00 23:00 Intake Total 2500 ml 480 ml 240 ml Balance 2500 ml 480 ml 240 ml Intake Oral 500 ml 480 ml 240 ml IV Total 2000 ml # Voids 3 3 Result Diagram: 03/25/18 0535 03/25/18 0535 Objective Remarks GENERAL: Patient lying in bed. Appears comfortable. Again, no changes. SKIN: Warm and dry. HEAD: Normocephalic. EYES: No scleral icterus. No injection or drainage. NECK: Supple, trachea midline. No JVD. CARDIOVASCULAR: Regular rate and rhythm without murmurs, gallops, or rubs. RESPIRATORY: Breath sounds equal bilaterally. No accessory muscle use. GASTROINTESTINAL: Abdomen soft, non-tender, nondistended. MUSCULOSKELETAL: No cyanosis, or edema. BACK: Nontender without obvious deformity. No CVA tenderness. A/P Assessment and Plan //Syncope //Suspected seizure Unclear etiology Head CT negative for acute process, shows focal areas likely from remote trauma Syncope workup pending; carotid ultrasound and echo pending = Neurology feels that this may be seizure. CTA unremarkable. EEG and echo still pending. Will need Keppra at discharge. = EEG and echo within normal limits. Keppra 500 mg twice daily. Follow-up with neurology as outpatient. Patient will also need follow-up with cardiology for event monitor placement. Patient says that he does have insurance will be able to follow-up. //Leukocytosis Patient with leukocytosis with left shift Chest x-ray negative for acute process UA negative Monitor = Resolved. Likely stress related. // Diabetes mellitus Sliding-scale insulin Monitor blood glucose = Patient will need to be started on insulin due to uncontrolled diabetes with A1c 9.2 on oral treatment. coding educator consult pending. Discharge pending coding educator consult. //Hypertension/hyperlipidemia //Patient may have orthostatic hypotension. Initial measurement yesterday with systolic blood pressures 180s lying down, 120 standing up, however today questionable findings of supine blood pressure lower with standing blood pressure higher. Continue home medications Follow-up with primary care as outpatient. //AK I Creatinine 1.34, no baseline for comparison IV fluid hydration Monitor renal function = Resolved . FEN Heart healthy diet Electrolytes: Monitor and replete as needed NS at 100 cc/hour Discharge Planning Cardiology has cleared. Follow-up cardiology as outpatient. We will need neurology follow-up as outpatient Discharge on Keppra. Follow-up with cardiology as outpatient. Luis Ruff MD Mar 27, 2018 09:15
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
[2018-03-27] MEDS: ATORVASTATIN 40 MG TAB PO SCH (10:20)
[2018-03-27] MEDS: LISINOPRIL 20 MG TAB PO SCH (10:20)
[2018-03-27] MEDS: SODIUM CHLORIDE 0.9% FLUSH 10 ML FLUSH IV FLUSH SCH (10:20)
[2018-03-27] MEDS: INSULIN ASPART SUPPLEMENTAL SCALE SQ SCH ×2 (10:21→14:25)
[2018-03-27] MEDS: INSULIN DETEMIR 100 UNITS/ML VIAL SQ SCH (10:21)
[2018-03-27] MEDS ORDERED: GLIP5TAB8 PO (13:40)
[2018-03-27] MEDS ORDERED: glipiZIDE 5 MG TAB PO ONE (13:45)
[2018-03-27] MEDS ORDERED: metFORMIN HCL 850 MG TAB PO ONE (13:45)
[2018-03-27] MEDS ORDERED: METF1000 PO (13:51)
[2018-03-28] MEDS ORDERED: glipiZIDE 5 MG TAB PO SCH (08:00)
== END 2018-03-27 14:35 | disposition home or self-care (01) ==
LOC: NEPE 14:49 → NEDA 20:47 → NEPFCDU 21:36 → NEPGCP 21:45
PROVIDERS: ADMIT Internal Medicine; ATTEND Internal Medicine
DX: R55 Syncope and collapse (principal); D72.829 Elevated white blood cell count, unspecified; E11.51 Type 2 diabetes mellitus with diabetic peripheral angiopathy without gangrene; I73.9 Peripheral vascular disease, unspecified; G40.909 Epilepsy, unspecified, not intractable, without status epilepticus; I10 Essential (primary) hypertension; I63.9 Cerebral infarction, unspecified; Q04.6 Congenital cerebral cysts; E78.5 Hyperlipidemia, unspecified; F17.210 Nicotine dependence, cigarettes, uncomplicated; Z79.84 Long term (current) use of oral hypoglycemic drugs; Z79.899 Other long term (current) drug therapy; Z86.73 Personal history of transient ischemic attack (TIA), and cerebral infarction without residual deficits; Z82.49 Family history of ischemic heart disease and other diseases of the circulatory system
CPT/HCPCS: 70450; 70496; 70498; 70553; 71045; 80048; 80053; 80307; 81001; 82550; 82552; 82607; 82948; 83036; 83735; 84443; 84484; 85025; 85610; 85652; 85730; 93005; 93306; 93880; 95819; 96360; 96361; 96372; 99285; A9579; G0378; J1815; J7030; Q9967

== ENCOUNTER 2018-08-11 16:32 | Inpatient (IN) ==
--- NOTE | 2018-08-11 17:03 | ED ---
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 It was initially thought patient had a seizure but through further questioning and evaluation, he says he felt heart palpitations and felt as if he was going to pass out so he pulled over on the side of the road, stopped his car before he passed out. EVAC states patient was able to open the car doors for EVAC upon their arrival. Patient states he has been taking Keppra for seizure disorder but is not how much or how frequently. Currently, he denies blurred vision, weakness, chest pain, shortness of breath, abdominal pain, leg pain. Patient says he smokes 2 packs of cigarettes every 3 days. Says he rarely drinks alcohol. Denies illicit drug use. He states that he lives with his Radha who was not present upon the initial evaluation. He denies history of cardiac issues. Patient states he has never had an OK, CHF, irregular heart rate. MD complaint: Reports palpitations Onset (ago): minute(s) Duration: constant Context: Reports occurred during rest Arrhythmia history: Denies atrial fibrillation Associated symptoms: Reports syncope and near-syncope; Denies chest pain, shortness of breath, nausea and vomiting Related Data Home Medications Medication Instructions Recorded Confirmed glipizide 5 mg PO BIDAC 08/11/18 08/11/18 insulin detemir U-100 [Levemir 12 unit SUBCUT Q12HR 08/11/18 08/11/18 U-100 Insulin] levetiracetam [Keppra] 500 mg PO BID 08/11/18 08/11/18 lisinopril 10 mg PO DAILY 08/11/18 08/11/18 metformin 1,000 mg PO BIDPC 08/11/18 08/11/18 mupirocin 1 applic TOPICAL TID 08/11/18 08/11/18 Allergies Allergy/AdvReac Type Severity Reaction Status Date / Time No Known Allergies Allergy Verified 08/11/18 20:03 Review of Systems ROS: all other systems reviewed are negative PMFSH History History Provided By: Patient Medical History Medical History Seizure (Acute) Diabetes (Chronic) Hyperlipemia (Chronic) Hypertension (Chronic) PVD (peripheral vascular disease) (Chronic) Surgical History Surgical History Hx of appendectomy (Acute) Family History Family History Father Healthy adult Mother Diabetes Hypertension Social History Social History Substance History: No History of Abuse Second Hand Smoke Exposure: Yes Smoking Status: Current every day smoker Tobacco Type: Cigarettes How Often Do You Have a Drink Containing Alcohol: 2 to 4 times a month Recent Travel in [facility] within the Last 8 Weeks: No Recent Out of Country Travel within the Last 8 Weeks: No Exam Narrative Exam Narrative: GENERAL: WD, WN in NAD, alert and oriented SKIN: Focused skin assessment warm/dry. HEAD: Atraumatic. Normocephalic. EYES: Pupils equal and round. No scleral icterus. No injection or drainage. ENT: No nasal bleeding or discharge. Mucous membranes pink and moist. NECK: Trachea midline. No JVD. No lymphadenopathy CARDIOVASCULAR: Tachycardic, irregular rate and rhythm. No murmur appreciated. RESPIRATORY: No accessory muscle use. Clear to auscultation. Breath sounds equal bilaterally. GASTROINTESTINAL: Abdomen soft, non-tender, nondistended. Hepatic and splenic margins not palpable. No CVAT MUSCULOSKELETAL: No obvious deformities. No clubbing. No cyanosis. No edema. NEUROLOGICAL: Awake and alert. No obvious cranial nerve deficits. Motor grossly within normal limits. 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. PSYCHIATRIC: Appropriate mood and affect; insight and judgment normal. Course Initial Documented Vital Signs Temperature 99.4 F 08/11/18 16:39 Pulse Rate 148 H 08/11/18 16:39 Respiratory Rate 18 08/11/18 16:39 Blood Pressure 126/63 08/11/18 16:39 Pulse Oximetry 98 08/11/18 16:39 Last Documented Vital Signs Temperature 98.4 F 08/12/18 08:00 Pulse Rate 68 08/12/18 08:00 Respiratory Rate 20 08/12/18 08:00 Blood Pressure 114/70 08/12/18 08:00 Pulse Oximetry 97 08/12/18 08:00 Medical Decision Making LAKEISHA Attestation LAKEISHA supervised visit: Yes Attestation: I, Dr. hartman, have reviewed the advance practice practitioner's documentation and am in agreement, met with the patient face to face, made the diagnosis, and the medical decision making was done by me. *My assessment and Findings: 57-year-old male who had a syncopal event with associated A. fib with RVR. He was given Cardizem to slow his rate and he will have blood work and imaging tested to rule out other emergent process and be admitted for further care. [facility] Narrative Medical decision making narrative: 57-year-old male with a history of diabetes mellitus type 2, hypertension, hyperlipidemia resents to the emergency department via EVAC for evaluation of a presumed seizure that occurred while driving today. Upon further evaluation and questioning, patient states that he had heart palpitations and the feeling as if he was going to pass out. He says he was driving when the symptoms started. He pulled over to the side of the road and passed out. 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 A brief review of the EMR demonstrates patient was treated in March for presumed seizures. He was given a workup for seizures and was discharged with Keppra twice a day. He denied alcohol use to me however after review states that he drinks 1 bottle of rice wine daily. Upon initial evaluation, patient's heart rate was 130-150, irregularly irregular. This is new per patient. Diltiazem 10 mg administered with improvement in heart rate to the low 100s. A subsequent diltiazem drip was initiated. Labs are notable for WBC 8.5, H/H 14.5/40.4, elevated d-dimer which prompted us to order a CT pulmonary angiogram, ammonia 62, BUN/creatinine 24/1.18, total CK 60. CTA does not demonstrate pulmonary embolism. Head CT stable. Patient admitted for new onset A fib. Medical Screen Exam Complete: Yes Emergency Medical Condition: Yes Differential Diagnosis Differential Diagnosis: PSVT, polysubstance abuse, seizure disorder, alcohol withdrawal Medical Records Medical records reviewed: Yes I reviewed the patient's medical records. Patient presented to the emergency department 03/24/2018 after being found lethargic in his car. At that time, he admitted to drinking a bottle of rice wine daily. This is not consistent with today's story. Echocardiogram completed 03/26/2018 showed left ventricular systolic function hyperdynamic with an EF 65-70%. Estimated pulmonary arterial pressure 32mmHg. Patient also had a carotid artery ultrasound, chest x-ray, head CT, brain MRI, head and neck CTA, EEG. left ICA showed 40% stenosis. Otherwise, no acute finding were present. He was also evaluated by neurosurgery who recommended pt not drive for 6 months. This was also when Keppra was started. Lab Data Result diagrams: 08/12/18 09:19 08/12/18 09:19 Lab Results 08/11/18 08/11/18 08/11/18 Range/Units 17:00 17:00 17:00 WBC 8.5 (4.0-11.0) th/mm3 RBC 4.50 (4.50-5.90) mil/mm3 Hgb 14.5 (13.0-17.0) gm/dL Hct 40.4 (39.0-51.0) % MCV 89.7 (80.0-100.0) fL MCH 32.3 (27.0-34.0) pg MCHC 36.0 (32.0-36.0) % RDW 12.3 (11.6-17.2) % Plt Count 229 (150-450) th/mm3 MPV 8.0 (7.0-11.0) fL Neut % (Auto) 55.2 (16.0-70.0) % Lymph % (Auto) 34.3 (9.0-44.0) % [place] % (Auto) 4.1 (0.0-8.0) % Eos % (Auto) 5.6 H (0.0-4.0) % Baso % (Auto) 0.8 (0.0-2.0) % Neut # (Auto) 4.7 (1.8-7.7) th/mm3 Lymph # (Auto) 2.9 (1.0-4.8) th/mm3 [place] # (Auto) 0.4 (0.0-0.9) th/mm3 Eos # (Auto) 0.5 H (0.0-0.4) th/mm3 Baso # (Auto) 0.1 (0.0-0.2) th/mm3 WBC Differential . Differential Comment Auto diff final D-Dimer Quant (PE/DVT) (0.00-0.50) mg/L FEU Sodium 139 (136-145) meq/L Potassium 4.4 (3.5-5.1) meq/L Chloride 105 (98-107) meq/L Carbon Dioxide 15.9 L (21.0-32.0) meq/L Anion Gap 18 H (5-15) meq/L BUN 24 H (7-18) mg/dL Creatinine 1.18 (0.60-1.30) mg/dL Estimated GFR 64 L (>89) mL/min POC Glucose (68-110) mg/dl Random Glucose 198 H (74-106) mg/dL Calcium 7.9 L (8.5-10.1) mg/dL Magnesium 1.9 (1.5-2.5) mg/dL Total Bilirubin 0.6 (0.2-1.0) mg/dL AST 11 L (15-37) U/L ALT 36 (12-78) U/L Alkaline Phosphatase 44 L (45-117) U/L Ammonia 62 H (11-32) mcmol/L Total Creatine Kinase (39-308) U/L Troponin I (0.02-0.05) ng/mL Total Protein 6.5 (6.4-8.2) g/dL Albumin 3.3 L (3.4-5.0) g/dL Urine Color (Yellw/Straw) Urine Clarity (Clear) Urine pH (5.0-8.5) Ur Specific [place] (1.002-1.035) Urine Protein (Neg-Trace) mg/dL Urine Glucose (UA) (Negative) mg/dL Urine Ketones (Negative) mg/dL Urine Occult Blood (Negative) Urine Nitrate (Negative) Urine Bilirubin (Negative) Urine Urobilinogen (Less than 2) mg/dL Ur Leukocyte Esterase (Negative) Urine RBC (0-3) /hpf Urine WBC (0-5) /hpf Hyaline Casts (0-3) /lpf Urine Mucus (Occasional) /lpf Ur Microscopic Review Urine Opiates Screen (Neg) Ur Barbiturates Screen (Neg) Ur Amphetamines Screen (Neg) U Benzodiazepines Scrn (Neg) Urine Cocaine Screen (Neg) U Cannabinoids Screen (Neg) Serum Alcohol 4 (0-5) mg/dL 08/11/18 08/11/18 08/11/18 Range/Units 17:00 17:40 17:50 WBC (4.0-11.0) th/mm3 RBC (4.50-5.90) mil/mm3 Hgb (13.0-17.0) gm/dL Hct (39.0-51.0) % MCV (80.0-100.0) fL MCH (27.0-34.0) pg MCHC (32.0-36.0) % RDW (11.6-17.2) % Plt Count (150-450) th/mm3 MPV (7.0-11.0) fL Neut % (Auto) (16.0-70.0) % Lymph % (Auto) (9.0-44.0) % [place] % (Auto) (0.0-8.0) % Eos % (Auto) (0.0-4.0) % Baso % (Auto) (0.0-2.0) % Neut # (Auto) (1.8-7.7) th/mm3 Lymph # (Auto) (1.0-4.8) th/mm3 [place] # (Auto) (0.0-0.9) th/mm3 Eos # (Auto) (0.0-0.4) th/mm3 Baso # (Auto) (0.0-0.2) th/mm3 WBC Differential Differential Comment D-Dimer Quant (PE/DVT) 0.53 H (0.00-0.50) mg/L FEU Sodium (136-145) meq/L Potassium (3.5-5.1) meq/L Chloride (98-107) meq/L Carbon Dioxide (21.0-32.0) meq/L Anion Gap (5-15) meq/L BUN (7-18) mg/dL Creatinine (0.60-1.30) mg/dL Estimated GFR (>89) mL/min POC Glucose (68-110) mg/dl Random Glucose (74-106) mg/dL Calcium (8.5-10.1) mg/dL Magnesium (1.5-2.5) mg/dL Total Bilirubin (0.2-1.0) mg/dL AST (15-37) U/L ALT (12-78) U/L Alkaline Phosphatase (45-117) U/L Ammonia (11-32) mcmol/L Total Creatine Kinase 60 (39-308) U/L Troponin I Less than 0.02 L (0.02-0.05) ng/mL Total Protein (6.4-8.2) g/dL Albumin (3.4-5.0) g/dL Urine Color (Yellw/Straw) Urine Clarity (Clear) Urine pH (5.0-8.5) Ur Specific [place] (1.002-1.035) Urine Protein (Neg-Trace) mg/dL Urine Glucose (UA) (Negative) mg/dL Urine Ketones (Negative) mg/dL Urine Occult Blood (Negative) Urine Nitrate (Negative) Urine Bilirubin (Negative) Urine Urobilinogen (Less than 2) mg/dL Ur Leukocyte Esterase (Negative) Urine RBC (0-3) /hpf Urine WBC (0-5) /hpf Hyaline Casts (0-3) /lpf Urine Mucus (Occasional) /lpf Ur Microscopic Review Urine Opiates Screen Neg (Neg) Ur Barbiturates Screen Neg (Neg) Ur Amphetamines Screen Neg (Neg) U Benzodiazepines Scrn Neg (Neg) Urine Cocaine Screen Neg (Neg) U Cannabinoids Screen Neg (Neg) Serum Alcohol (0-5) mg/dL 08/11/18 08/12/18 08/12/18 Range/Units 17:50 00:03 09:19 WBC 7.1 (4.0-11.0) th/mm3 RBC 4.42 L (4.50-5.90) mil/mm3 Hgb 14.0 (13.0-17.0) gm/dL Hct 39.8 (39.0-51.0) % MCV 90.1 (80.0-100.0) fL MCH 31.7 (27.0-34.0) pg MCHC 35.2 (32.0-36.0) % RDW 12.7 (11.6-17.2) % Plt Count 200 (150-450) th/mm3 MPV 7.6 (7.0-11.0) fL Neut % (Auto) 73.0 H (16.0-70.0) % Lymph % (Auto) 18.2 (9.0-44.0) % [place] % (Auto) 4.0 (0.0-8.0) % Eos % (Auto) 4.2 H (0.0-4.0) % Baso % (Auto) 0.6 (0.0-2.0) % Neut # (Auto) 5.2 (1.8-7.7) th/mm3 Lymph # (Auto) 1.3 (1.0-4.8) th/mm3 [place] # (Auto) 0.3 (0.0-0.9) th/mm3 Eos # (Auto) 0.3 (0.0-0.4) th/mm3 Baso # (Auto) 0.0 (0.0-0.2) th/mm3 WBC Differential . Differential Comment Auto diff final D-Dimer Quant (PE/DVT) (0.00-0.50) mg/L FEU Sodium (136-145) meq/L Potassium (3.5-5.1) meq/L Chloride (98-107) meq/L Carbon Dioxide (21.0-32.0) meq/L Anion Gap (5-15) meq/L BUN (7-18) mg/dL Creatinine (0.60-1.30) mg/dL Estimated GFR (>89) mL/min POC Glucose 136 H (68-110) mg/dl Random Glucose (74-106) mg/dL Calcium (8.5-10.1) mg/dL Magnesium (1.5-2.5) mg/dL Total Bilirubin (0.2-1.0) mg/dL AST (15-37) U/L ALT (12-78) U/L Alkaline Phosphatase (45-117) U/L Ammonia (11-32) mcmol/L Total Creatine Kinase (39-308) U/L Troponin I (0.02-0.05) ng/mL Total Protein (6.4-8.2) g/dL Albumin (3.4-5.0) g/dL Urine Color Yellow (Yellw/Straw) Urine Clarity Clear (Clear) Urine pH 5.0 (5.0-8.5) Ur Specific [place] 1.012 (1.002-1.035) Urine Protein Negative (Neg-Trace) mg/dL Urine Glucose (UA) 500 or greater (Negative) mg/dL Urine Ketones Trace H (Negative) mg/dL Urine Occult Blood Negative (Negative) Urine Nitrate Negative (Negative) Urine Bilirubin Negative (Negative) Urine Urobilinogen Less than 2 (Less than 2) mg/dL Ur Leukocyte Esterase Negative (Negative) Urine RBC Less than 1 (0-3) /hpf Urine WBC 1 (0-5) /hpf Hyaline Casts 5 (0-3) /lpf Urine Mucus Few H (Occasional) /lpf Ur Microscopic Review Not Reportable Urine Opiates Screen (Neg) Ur Barbiturates Screen (Neg) Ur Amphetamines Screen (Neg) U Benzodiazepines Scrn (Neg) Urine Cocaine Screen (Neg) U Cannabinoids Screen (Neg) Serum Alcohol (0-5) mg/dL 08/12/18 08/12/18 08/12/18 Range/Units 09:19 09:19 11:36 WBC (4.0-11.0) th/mm3 RBC (4.50-5.90) mil/mm3 Hgb (13.0-17.0) gm/dL Hct (39.0-51.0) % MCV (80.0-100.0) fL MCH (27.0-34.0) pg MCHC (32.0-36.0) % RDW (11.6-17.2) % Plt Count (150-450) th/mm3 MPV (7.0-11.0) fL Neut % (Auto) (16.0-70.0) % Lymph % (Auto) (9.0-44.0) % [place] % (Auto) (0.0-8.0) % Eos % (Auto) (0.0-4.0) % Baso % (Auto) (0.0-2.0) % Neut # (Auto) (1.8-7.7) th/mm3 Lymph # (Auto) (1.0-4.8) th/mm3 [place] # (Auto) (0.0-0.9) th/mm3 Eos # (Auto) (0.0-0.4) th/mm3 Baso # (Auto) (0.0-0.2) th/mm3 WBC Differential Differential Comment D-Dimer Quant (PE/DVT) (0.00-0.50) mg/L FEU Sodium 139 (136-145) meq/L Potassium 3.8 (3.5-5.1) meq/L Chloride 105 (98-107) meq/L Carbon Dioxide 23.5 (21.0-32.0) meq/L Anion Gap 11 (5-15) meq/L BUN 15 (7-18) mg/dL Creatinine 1.01 (0.60-1.30) mg/dL Estimated GFR 77 L (>89) mL/min POC Glucose 211 H (68-110) mg/dl Random Glucose 260 H (74-106) mg/dL Calcium 7.6 L (8.5-10.1) mg/dL Magnesium (1.5-2.5) mg/dL Total Bilirubin 0.9 (0.2-1.0) mg/dL AST 13 L (15-37) U/L ALT 29 (12-78) U/L Alkaline Phosphatase 43 L (45-117) U/L Ammonia 28 (11-32) mcmol/L Total Creatine Kinase (39-308) U/L Troponin I (0.02-0.05) ng/mL Total Protein 6.0 L (6.4-8.2) g/dL Albumin 2.9 L (3.4-5.0) g/dL Urine Color (Yellw/Straw) Urine Clarity (Clear) Urine pH (5.0-8.5) Ur Specific [place] (1.002-1.035) Urine Protein (Neg-Trace) mg/dL Urine Glucose (UA) (Negative) mg/dL Urine Ketones (Negative) mg/dL Urine Occult Blood (Negative) Urine Nitrate (Negative) Urine Bilirubin (Negative) Urine Urobilinogen (Less than 2) mg/dL Ur Leukocyte Esterase (Negative) Urine RBC (0-3) /hpf Urine WBC (0-5) /hpf Hyaline Casts (0-3) /lpf Urine Mucus (Occasional) /lpf Ur Microscopic Review Urine Opiates Screen (Neg) Ur Barbiturates Screen (Neg) Ur Amphetamines Screen (Neg) U Benzodiazepines Scrn (Neg) Urine Cocaine Screen (Neg) U Cannabinoids Screen (Neg) Serum Alcohol (0-5) mg/dL Imaging Data Radiologist's impression: Head CT 08/11/18 16:39 CONCLUSION: 1. No acute findings. 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 . Chest CTA 08/11/18 18:26 CONCLUSION: 1. Negative for pulmonary embolus. Basilar dependent atelectasis in the lungs. Discharge Plan Discharge Disposition Patient Disposition: 30 Still Patient Discharge Condition Condition: Stable Discharge Details Diagnosis: Atrial fibrillation with RVR Physicians Team ED Provider: Kellee Hartman ED Midlevel Provider: Anahi Antunez Primary Care Provider: Primary Care Magdalena Case Attending Provider: Fiorella Ortega Other Providers: Donald Arguelles Status ED Status: Left Department Discharge Information Discharge Date/Time: 08/11/18 22:30
[2018-08-11 17:14] LABS: Baso # (Auto) 0.1 th/mm3 (0.0-0.2); Baso % (Auto) 0.8 % (0.0-2.0); Eos # (Auto) 0.5 th/mm3 (0.0-0.4); Eos % (Auto) 5.6 % (0.0-4.0); Hematocrit 40.4 % (39.0-51.0); Hemoglobin 14.5 gm/dL (13.0-17.0); Lymph # (Auto) 2.9 th/mm3 (1.0-4.8); Lymph % (Auto) 34.3 % (9.0-44.0); Mean Corpuscular Hemoglobin 32.3 pg (27.0-34.0); Mean Corpuscular Volume 89.7 fL (80.0-100.0); Mono # (Auto) 0.4 th/mm3 (0.0-0.9); Mono % (Auto) 4.1 % (0.0-8.0); Neut # (Auto) 4.7 th/mm3 (1.8-7.7); Neut % (Auto) 55.2 % (16.0-70.0); Platelet Count 229 th/mm3 (150-450); Red Cell Distribution Width 12.3 % (11.6-17.2); White Blood Count 8.5 th/mm3 (4.0-11.0)
[2018-08-11] MEDS: Sod Chloride 0.9% Inj 1,000 ML IV.CONT SCH (17:18)
[2018-08-11 17:30] LABS: Albumin 3.3 g/dL (3.4-5.0); Anion Gap 18 meq/L (5-15); Aspartate Aminotransferase 11 U/L (15-37); Blood Urea Nitrogen 24 mg/dL (7-18); Calcium 7.9 mg/dL (8.5-10.1); Carbon Dioxide 15.9 meq/L (21.0-32.0); Chloride 105 meq/L (98-107); Glomerular Filtration Rate 64 mL/min (>89); Glucose,Random 198 mg/dL (74-106); Magnesium 1.9 mg/dL (1.5-2.5); Potassium 4.4 meq/L (3.5-5.1); Sodium 139 meq/L (136-145)
[2018-08-11 17:31] LABS: Alanine Aminotransferase 36 U/L (12-78)
[2018-08-11 17:34] LABS: Alkaline Phosphatase 44 U/L (45-117); Total Protein 6.5 g/dL (6.4-8.2)
[2018-08-11 17:36] LABS: Alcohol 4 mg/dL (0-5); Creatine Kinase 60 U/L (39-308)
[2018-08-11 18:16] LABS: Amphetamine Screen,Urine Neg (Neg); Barbiturate Screen,Urine Neg (Neg); Cannabinoid Screen,Urine Neg (Neg); Cocaine Screen,Urine Neg (Neg)
[2018-08-11 18:31] LABS: Opiate Screen,Urine Neg (Neg)
--- NOTE | 2018-08-11 18:47 | CT ---
EXAM DATE: 08/11/2018 6:26 PM EDT AGE/SEX: 57 years / Male INDICATIONS: Possible seizure today. CLINICAL DATA: This is the patient's initial encounter. Patient reports that signs and symptoms have been present for 1 day and indicates a pain score of 0/10. MEDICAL/SURGICAL HISTORY: Seizures. None. RADIATION DOSE: 56.35 CTDI (mGy) COMPARISON: [facility] [place], CT BRAIN W/O CONTRAST, 03/24/2018. . TECHNIQUE: CT of the head without contrast. Using automated exposure control and adjustment of the mA and/or kV according to patient size, radiation dose was kept as low as reasonably achievable to ob tain optimal diagnostic quality images. DICOM format image data is available electronically for revi ew and comparison. FINDINGS: Cerebrum: Stable remote infarcts noted in the right frontal lobe and right parieto-occipital lobe. T hese are similar to prior exam. Also remote lacunar infarct left basal ganglia. No new intracranial h emorrhage, mass effect or shift. No hydrocephalus. Posterior Fossa: The cerebellum and brainstem are intact. The 4th ventricle is midline. The cerebe llopontine angle is unremarkable. Extracranial: The visualized portion of the orbits is intact. Skull: The calvaria is intact. No evidence of skull fracture. CONCLUSION: 1. No acute findings. Stable remote infarcts in the right frontal lobe and right parieto-occipital r egion with prior lacunar infarct in the left basal ganglia. . Electronically signed by: Mg Valdivia MD 08/11/2018 6:46 PM EDT
[2018-08-11] MEDS ORDERED: dilTIAZem Inj 125 MG in Sodium Chlor 0.9% Inj 100 ML IV.CONT PRN (19:04)
[2018-08-11 19:11] LABS: Bilirubin,Urine Negative (Negative); Clarity,Urine Clear (Clear); Color,Urine Yellow (Yellw/Straw); Glucose,Urine (UA) 500 or Greater mg/dL (Negative); Hyaline Casts,Urine 5 /lpf (0-3); Leukocyte Esterase,Urine Negative (Negative); Mucus,Urine Few /lpf (Occasional); Nitrite,Urine Negative (Negative); Specific Gravity,Urine 1.012 (1.002-1.035)
--- NOTE | 2018-08-11 20:38 | CT ---
EXAM DATE: 08/11/2018 8:30 PM EDT AGE/SEX: 57 years / Male INDICATIONS: Shortness of breath and elevated D-dimer today. CLINICAL DATA: This is the patient's initial encounter. Patient reports that signs and symptoms have been present for 1 day and indicates a pain score of 0/10. MEDICAL/SURGICAL HISTORY: Diabetes. Peripheral vascular disease. Hypertension. None. RADIATION DOSE: 14.63 CTDI (mGy) COMPARISON: No prior exams available for comparison. TECHNIQUE: Volumetric scanning was performed using a multi-row detector CT scanner during bolus infu gabino of 75 ml Omnipaque 350 (iohexol) nonionic water-soluble contrast as a single exam dose. The sakina a was post processed with a variety of visualization algorithms including full volume maximum intensi ty projection and sliding thin slab reformation. Using automated exposure control and adjustment of the mA and/or kV according to patient size, radiation dose was kept as low as reasonably achievable t o obtain optimal diagnostic quality images. DICOM format image data is available electronically for review and comparison. FINDINGS: No filling defects identified to suggest pulmonary embolic disease. Minimal dependent atelectasis in the lungs. No pleural or pericardial effusion. No adenopathy. No acute findings in the upper abdomen. CONCLUSION: 1. Negative for pulmonary embolus. Basilar dependent atelectasis in the lungs. Electronically signed by: Mg Valdivia MD 08/11/2018 8:36 PM EDT
[2018-08-11] MEDS ORDERED: Bisacodyl 10 MG Supp RECTAL PRN (21:11)
[2018-08-11] MEDS ORDERED: Dextrose 50% in Water 50 ML Vial IV.PUSH PRN (21:14)
--- NOTE | 2018-08-11 23:02 | P.HPIM ---
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 57-year-old male with a history of diabetes mellitus, hyperlipidemia, hypertension, possible seizure in May of this year for which she was started on Keppra he was brought in by EMS this afternoon due to acute syncopal episode , found to have PSVT by E back, atrial fibrillation with RVR on EKG here. Patient says he felt fine prior to this event. He was driving, felt lightheaded , pulled over to the side of the road and passed out in his vehicle. He denies any chest pain, shortness of breath. He has been given Cardizem drip with improvement in heart rate. He says he currently feels much better. Inpatient Certification: I certify that the inpatient services were ordered in accordance with Medicare regulations governing the order. This includes certification that hospital inpatient services are reasonable and necessary and in the case of services not specified as inpatient-only under 42 CFR 419.22(n), that they are appropriately provided as inpatient services in accordance to with the 2-midnight benchmark under 43 CFR 412.3(e) Estimated Total Length of Stay (Days): 2 Plans for Post Hospital Care: Home Review of Systems All other systems reviewed negative except as stated in HPI PMFSH - History History Provided By: Patient, Lei Seller / EMT - Medical / Surgical Hx Neg / Unobtainable Surgical History: No Previous Surgery - Medical History Medical History: Medical History (Last Reviewed 08/11/18 @ 22:55 by Luis Ruff MD) Seizure Diabetes Hyperlipemia Hypertension PVD (peripheral vascular disease) - Family History Family History: Family History (Last Updated 08/11/18 @ 22:55 by Luis Ruff MD) Father Healthy adult Mother Diabetes Hypertension - Social History I have reviewed the patient's Social History: Yes - Tobacco History Second Hand Smoke Exposure: Yes Tobacco Use In Past 30 Days: Yes Smoking Status: Current every day smoker Tobacco Type: Cigarettes - Alcohol History How Often Do You Have a Drink Containing Alcohol: 2 to 4 times a month - Substance Use History Substance History: No History of Abuse - Travel History Recent Travel in the [place] Within the Last 8 Weeks: No Recent Travel Out of the Country Within the Last 8 Weeks: No - Immunization History Tetanus Immunization: Unsure Medications and Allergies Active Medications: Active Medications Al Hydroxide/Mg Hydroxide (Milk Of Magnholden Liq) 30 ml PO Q12H PRN PRN Reason: Mild Constipation Bisacodyl (Dulcolax Supp) 10 mg RECTAL DAILY PRN PRN Reason: SEVERE CONSITIPATION Dextrose (D50w Vial) 50 ml IV.PUSH UNSCH PRN PRN Reason: PER HYPOGLYCEMIA PROTOCOL Glucagon (Glucagon Inj) 1 mg OTHER PRN PRN PRN Reason: for Hypoglycemia Protocol Sodium Chloride (Ns Inj) 1,000 mls @ 125 mls/hr IV.CONT .Q8H NELIA Last Admin: 08/11/18 17:18 Dose: 125 mls/hr Diltiazem HCl 125 mg/ Sodium (Chloride) 125 mls @ 5 mls/hr IV.CONT TITRATE PRN ; Protocol PRN Reason: Per Protocol Insulin Aspart (Novolog Insulin Correctional Sugar Inj) 0 unit SQ ACHS NELIA; Protocol Lactulose (Lactulose Liq) 30 ml PO DAILY PRN PRN Reason: SEVERE CONSITIPATION Sennosides (Senokot) 17.2 mg PO Q12H PRN PRN Reason: Moderate Constipation Sodium Chloride (Ns Flush) 2 ml IV.FLUSH PRN PRN PRN Reason: FLUSH AFTER USING IV ACCESS Last Admin: 08/11/18 17:17 Dose: 2 ml Allergies Allergy/AdvReac Type Severity Reaction Status Date / Time No Known Allergies Allergy Verified 08/11/18 20:03 Home Medications Medication Instructions Recorded Confirmed Type Unable to Obtain Home Meds 08/11/18 08/11/18 History Exam Vital signs: Vital Signs 08/11/18 16:39 08/11/18 16:49 08/11/18 17:45 Temperature 99.4 F Pulse Rate 148 H 104 H Respiratory Rate 18 16 Blood Pressure 126/63 126/66 Pulse Oximetry 98 96 08/11/18 18:30 08/11/18 21:00 Temperature Pulse Rate 99 H 67 Respiratory Rate 22 16 Blood Pressure 110/63 138/74 Pulse Oximetry 96 Intake & Output 08/11/18 08/11/18 08/12/18 06:59 18:59 06:59 Weight 68.039 kg Narrative: GENERAL: Patient sitting up in bed. Appears comfortable. Alert and oriented x3. SKIN: Warm and dry. HEAD: Atraumatic. Normocephalic. EYES: Pupils equal and round. No scleral icterus. No injection or drainage. ENT: No nasal bleeding or discharge. Mucous membranes pink and moist. NECK: Trachea midline. No JVD. CARDIOVASCULAR: Irregular rhythm with heart rate in the 90s. No murmurs rubs gallops or clicks. RESPIRATORY: No accessory muscle use. Clear to auscultation. Breath sounds equal bilaterally. GASTROINTESTINAL: Abdomen soft, non-tender, nondistended. Hepatic and splenic margins not palpable. MUSCULOSKELETAL: Extremities without clubbing, cyanosis, or edema. No obvious deformities. NEUROLOGICAL: Awake and alert. No obvious cranial nerve deficits. Motor grossly within normal limits. Five out of 5 muscle strength in the arms and legs. 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. PSYCHIATRIC: Appropriate mood and affect; insight and judgment normal. Results - Labs CBC & Chem 7: 08/11/18 17:00 08/11/18 17:00 Labs: Short CBC 08/11/18 Range/Units 17:00 WBC 8.5 (4.0-11.0) th/mm3 Hgb 14.5 (13.0-17.0) gm/dL Hct 40.4 (39.0-51.0) % Plt Count 229 (150-450) th/mm3 BMP 08/11/18 17:00 Sodium 139 Potassium 4.4 Chloride 105 Carbon Dioxide 15.9 L BUN 24 H Creatinine 1.18 Calcium 7.9 L Cardiac Enzymes 08/11/18 Range/Units 17:00 Total Creatine Kinase 60 (39-308) U/L Troponin I Less than 0.02 L (0.02-0.05) ng/mL Liver Function 08/11/18 Range/Units 17:00 Total Bilirubin 0.6 (0.2-1.0) mg/dL AST 11 L (15-37) U/L ALT 36 (12-78) U/L Alkaline Phosphatase 44 L (45-117) U/L Albumin 3.3 L (3.4-5.0) g/dL Urine 08/11/18 Range/Units 17:50 Urine Color Yellow (Yellw/Straw) Urine Clarity Clear (Clear) Urine pH 5.0 (5.0-8.5) Ur Specific [place] 1.012 (1.002-1.035) Urine Protein Negative (Neg-Trace) mg/dL Urine Glucose (UA) 500 or greater (Negative) mg/dL - Imaging Impressions Head CT 08/11/18 16:39 CONCLUSION: 1. No acute findings. 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 . Chest CTA 08/11/18 18:26 CONCLUSION: 1. Negative for pulmonary embolus. Basilar dependent atelectasis in the lungs. Caprini VTE Risk Assessment Caprini VTE Risk Assessment: No/Low Risk (score <= 1) Caprini Risk Assessment Model: Point Value = 1 Point Value = 2 Point Value = 3 Point Value = 5 Age 41-60 Minor surgery BMI > 25 kg/m2 Swollen legs Varicose veins or History of unexplained or recurrent spontaneous Oral contraceptives or hormone replacement Sepsis (< 1 month) Serious lung disease, including pneumonia (< 1 month) Abnormal pulmonary function Acute myocardial infarction Congestive heart failure (< 1 month) History of inflammatory bowel disease Medical patient at bed rest Age 61-74 Arthroscopic surgery Major open surgery (> 45 min) Laparoscopic surgery (> 45 min) Malignancy Confined to bed (> 72 hours) Immobilizing plaster cast Central venous access Age >= 75 History of VTE Family history of VTE Factor V Leiden Prothrombin [id number] Lupus anticoagulant Anticardiolipin antibodies Elevated serum homocysteine Heparin-induced thrombocytopenia Other congenital or acquired thrombophilia Stroke (< 1 month) Elective arthroplasty Hip, pelvis, or leg fracture Acute spinal cord injury (< 1 month) Prophylaxis Regimen: Total Risk Factor Score Risk Level Prophylaxis Regimen 0-1 Low Early ambulation 2 Moderate Order ONE of the following: *Sequential Compression Device (SCD) *Heparin 5000 units SQ BID 3-4 Higher Order ONE of the following medications: *Heparin 5000 units SQ TID *Enoxaparin/Lovenox 40 mg SQ daily (WT < 150 kg, CrCl > 30 mL/min) *Enoxaparin/Lovenox 30 mg SQ daily (WT < 150 kg, CrCl > 10-29 mL/min) *Enoxaparin/Lovenox 30 mg SQ BID (WT < 150 kg, CrCl > 30 mL/min) AND/OR *Sequential Compression Device (SCD) 5 or more Highest Order ONE of the following medications: *Heparin 5000 units SQ TID (Preferred with Epidurals) *Enoxaparin/Lovenox 40 mg SQ daily (WT < 150 kg, CrCl > 30 mL/min) *Enoxaparin/Lovenox 30 mg SQ daily (WT < 150 kg, CrCl > 10-29 mL/min) *Enoxaparin/Lovenox 30 mg SQ BID (WT < 150 kg, CrCl > 30 mL/min) AND *Sequential Compression Device (SCD) Assessment and Plan - Plan 57-year-old male with a history of diabetes, previous tentative diagnosis of seizures (it was thought at this time that it could be cardiac in nature, however no evidence on telemetry) in March of this year who presents with syncopal episode while driving, atrial fibrillation with RVR. //Supraventricular tachycardia //With syncopal episode -Likely atrial fibrillation with RVR -Echocardiogram March of this year shows ejection fraction 65-70% with no wall motion abnormalities. Much improved on diltiazem drip. Will consult cardiology due to new diagnosis. //Previous history of seizures. -Please note that patient was informed that he was not to drive on previous admission in March. -Patient reportedly on Keppra. It is unlikely that patient seizures are actually seizures but rather that it is cardiac arrhythmia as above. Will await home medication reconciliation. //Tobacco abuse. Cessation counseling provided. //Diabetes mellitus diabetic diet and insulin sliding scale. //History of hypertension. Blood pressure acceptable. Continue home medications as necessary. Discussed Condition With: Patient, nurse, ED physician.
[2018-08-12] MEDS: Sod Chloride 0.9% Inj 1,000 ML IV.CONT SCH ×2 (01:01→09:11)
[2018-08-12] MEDS: Insulin NovoLOG Aspart Correctional Sugar Inj SQ SCH ×4 (08:56→20:27)
[2018-08-12] MEDS: Lisinopril 10 MG Tablet PO SCH (08:57)
[2018-08-12] MEDS ORDERED: Influenza (Quadrivalent) Vaccine 0.5 ML Syringe IM ONE (09:00)
[2018-08-12] MEDS: Insulin Detemir Inj 1,000 UNIT/10 ML Vial SQ SCH ×2 (09:00→20:20)
[2018-08-12] MEDS: glipiZIDE 5 MG Tablet PO SCH ×2 (09:00→18:22)
[2018-08-12] MEDS: levETIRAcetam 500 MG Tablet PO SCH ×2 (09:00→20:20)
[2018-08-12 09:44] LABS: Baso % (Auto) 0.6 % (0.0-2.0); Eos # (Auto) 0.3 th/mm3 (0.0-0.4); Eos % (Auto) 4.2 % (0.0-4.0); Hematocrit 39.8 % (39.0-51.0); Lymph # (Auto) 1.3 th/mm3 (1.0-4.8); Lymph % (Auto) 18.2 % (9.0-44.0); Mean Corpuscular HGB Conc 35.2 % (32.0-36.0); Mean Corpuscular Hemoglobin 31.7 pg (27.0-34.0); Mean Corpuscular Volume 90.1 fL (80.0-100.0); Mean Platelet Volume 7.6 fL (7.0-11.0); Mono # (Auto) 0.3 th/mm3 (0.0-0.9); Neut # (Auto) 5.2 th/mm3 (1.8-7.7); Platelet Count 200 th/mm3 (150-450); Red Blood Count 4.42 mil/mm3 (4.50-5.90); Red Cell Distribution Width 12.7 % (11.6-17.2); White Blood Count 7.1 th/mm3 (4.0-11.0)
[2018-08-12 10:00] LABS: Aspartate Aminotransferase 13 U/L (15-37); Blood Urea Nitrogen 15 mg/dL (7-18); Calcium 7.6 mg/dL (8.5-10.1); Carbon Dioxide 23.5 meq/L (21.0-32.0); Glomerular Filtration Rate 77 mL/min (>89); Glucose,Random 260 mg/dL (74-106)
[2018-08-12 10:01] LABS: Albumin 2.9 g/dL (3.4-5.0)
[2018-08-12 10:02] LABS: Alanine Aminotransferase 29 U/L (12-78)
[2018-08-12 10:03] LABS: Anion Gap 11 meq/L (5-15); Chloride 105 meq/L (98-107); Potassium 3.8 meq/L (3.5-5.1); Sodium 139 meq/L (136-145)
[2018-08-12 10:04] LABS: Alkaline Phosphatase 43 U/L (45-117)
--- NOTE | 2018-08-12 11:09 | P.PN ---
Subjective Interval history: Follow-up for syncope, A. 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 Patient awake, alert oriented x3. Indicates he had a good night. Denies any chest pain, shortness of breath, no palpitations. Telemetry reviewed, sinus rhythm, heart rate 60s. Denies any dizziness. On IV fluids. Has no questions. Off Cardizem drip. Physical Exam Vital signs: Vital Signs 08/11/18 16:39 08/11/18 16:49 08/11/18 17:45 Temperature 99.4 F Pulse Rate 148 H 104 H Respiratory Rate 18 16 Blood Pressure 126/63 126/66 Pulse Oximetry 98 96 08/11/18 18:30 08/11/18 21:00 08/11/18 23:58 Temperature 97.5 F L Pulse Rate 99 H 67 66 Respiratory Rate 22 16 17 Blood Pressure 110/63 138/74 149/79 H Pulse Oximetry 96 99 08/12/18 00:00 08/12/18 04:00 08/12/18 08:00 Temperature 98.1 F 98.4 F Pulse Rate 63 66 68 Respiratory Rate 18 20 Blood Pressure 110/60 114/70 Pulse Oximetry 97 97 Intake & Output 08/11/18 08/12/18 08/12/18 18:59 06:59 18:59 Intake Total 1500 / 1500 1000 / 1000 Balance 1500 / 1500 1000 / 1000 Weight 68.039 kg 72.5 kg Intake: IV 1000 / 1000 1000 / 1000 NS Inj 1,000 ML @ 125 mls/hr IV 1000 / 1000 1000 / 1000 .CONT .Q8H [facility] Rx#:[id number] Oral 500 / 500 Other: # Voids 2 Weight On Admission 68.03 kg Narrative: GENERAL: Patient sitting up in bed. Appears comfortable. Alert and oriented x3. SKIN: Warm and dry. HEAD: Atraumatic. Normocephalic. EYES: Pupils equal and round. No scleral icterus. No injection or drainage. ENT: No nasal bleeding or discharge. Mucous membranes pink and moist. NECK: Trachea midline. No JVD. CARDIOVASCULAR: S1-S2, RRR, no rubs, no murmurs, no gallop RESPIRATORY: No accessory muscle use. Clear to auscultation. Breath sounds equal bilaterally. GASTROINTESTINAL: Abdomen soft, non-tender, nondistended. Hepatic and splenic margins not palpable. MUSCULOSKELETAL: Extremities without clubbing, cyanosis, or edema. No obvious deformities. NEUROLOGICAL: Awake and alert. No obvious cranial nerve deficits. Motor grossly within normal limits. Five out of 5 muscle strength in the arms and legs. 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. PSYCHIATRIC: Appropriate mood and affect; insight and judgment normal. Results - Labs CBC & Chem 7: 08/12/18 09:19 08/12/18 09:19 Laboratory Results - last 24 hr 08/11/18 08/11/18 08/11/18 17:00 17:00 17:00 WBC 8.5 RBC 4.50 Hgb 14.5 Hct 40.4 MCV 89.7 MCH 32.3 MCHC 36.0 RDW 12.3 Plt Count 229 MPV 8.0 Neut % (Auto) 55.2 Lymph % (Auto) 34.3 [place] % (Auto) 4.1 Eos % (Auto) 5.6 H Baso % (Auto) 0.8 Neut # (Auto) 4.7 Lymph # (Auto) 2.9 [place] # (Auto) 0.4 Eos # (Auto) 0.5 H Baso # (Auto) 0.1 WBC Differential . Differential Comment Auto diff final D-Dimer Quant (PE/DVT) Sodium 139 Potassium 4.4 Chloride 105 Carbon Dioxide 15.9 L Anion Gap 18 H BUN 24 H Creatinine 1.18 Estimated GFR 64 L POC Glucose Random Glucose 198 H Calcium 7.9 L Magnesium 1.9 Total Bilirubin 0.6 AST 11 L ALT 36 Alkaline Phosphatase 44 L Ammonia 62 H Total Creatine Kinase Troponin I Total Protein 6.5 Albumin 3.3 L Urine Color Urine Clarity Urine pH Ur Specific [place] Urine Protein Urine Glucose (UA) Urine Ketones Urine Occult Blood Urine Nitrate Urine Bilirubin Urine Urobilinogen Ur Leukocyte Esterase Urine RBC Urine WBC Hyaline Casts Urine Mucus Ur Microscopic Review Urine Opiates Screen Ur Barbiturates Screen Ur Amphetamines Screen U Benzodiazepines Scrn Urine Cocaine Screen U Cannabinoids Screen Serum Alcohol 4 08/11/18 08/11/18 08/11/18 17:00 17:40 17:50 WBC RBC Hgb Hct MCV MCH MCHC RDW Plt Count MPV Neut % (Auto) Lymph % (Auto) [place] % (Auto) Eos % (Auto) Baso % (Auto) Neut # (Auto) Lymph # (Auto) [place] # (Auto) Eos # (Auto) Baso # (Auto) WBC Differential Differential Comment D-Dimer Quant (PE/DVT) 0.53 H Sodium Potassium Chloride Carbon Dioxide Anion Gap BUN Creatinine Estimated GFR POC Glucose Random Glucose Calcium Magnesium Total Bilirubin AST ALT Alkaline Phosphatase Ammonia Total Creatine Kinase 60 Troponin I Less than 0.02 L Total Protein Albumin Urine Color Urine Clarity Urine pH Ur Specific [place] Urine Protein Urine Glucose (UA) Urine Ketones Urine Occult Blood Urine Nitrate Urine Bilirubin Urine Urobilinogen Ur Leukocyte Esterase Urine RBC Urine WBC Hyaline Casts Urine Mucus Ur Microscopic Review Urine Opiates Screen Neg Ur Barbiturates Screen Neg Ur Amphetamines Screen Neg U Benzodiazepines Scrn Neg Urine Cocaine Screen Neg U Cannabinoids Screen Neg Serum Alcohol 08/11/18 08/12/18 08/12/18 17:50 00:03 09:19 WBC 7.1 RBC 4.42 L Hgb 14.0 Hct 39.8 MCV 90.1 MCH 31.7 MCHC 35.2 RDW 12.7 Plt Count 200 MPV 7.6 Neut % (Auto) 73.0 H Lymph % (Auto) 18.2 [place] % (Auto) 4.0 Eos % (Auto) 4.2 H Baso % (Auto) 0.6 Neut # (Auto) 5.2 Lymph # (Auto) 1.3 [place] # (Auto) 0.3 Eos # (Auto) 0.3 Baso # (Auto) 0.0 WBC Differential . Differential Comment Auto diff final D-Dimer Quant (PE/DVT) Sodium Potassium Chloride Carbon Dioxide Anion Gap BUN Creatinine Estimated GFR POC Glucose 136 H Random Glucose Calcium Magnesium Total Bilirubin AST ALT Alkaline Phosphatase Ammonia Total Creatine Kinase Troponin I Total Protein Albumin Urine Color Yellow Urine Clarity Clear Urine pH 5.0 Ur Specific [place] 1.012 Urine Protein Negative Urine Glucose (UA) 500 or greater Urine Ketones Trace H Urine Occult Blood Negative Urine Nitrate Negative Urine Bilirubin Negative Urine Urobilinogen Less than 2 Ur Leukocyte Esterase Negative Urine RBC Less than 1 Urine WBC 1 Hyaline Casts 5 Urine Mucus Few H Ur Microscopic Review Not Reportable Urine Opiates Screen Ur Barbiturates Screen Ur Amphetamines Screen U Benzodiazepines Scrn Urine Cocaine Screen U Cannabinoids Screen Serum Alcohol 08/12/18 08/12/18 09:19 09:19 WBC RBC Hgb Hct MCV MCH MCHC RDW Plt Count MPV Neut % (Auto) Lymph % (Auto) [place] % (Auto) Eos % (Auto) Baso % (Auto) Neut # (Auto) Lymph # (Auto) [place] # (Auto) Eos # (Auto) Baso # (Auto) WBC Differential Differential Comment D-Dimer Quant (PE/DVT) Sodium 139 Potassium 3.8 Chloride 105 Carbon Dioxide 23.5 Anion Gap 11 BUN 15 Creatinine 1.01 Estimated GFR 77 L POC Glucose Random Glucose 260 H Calcium 7.6 L Magnesium Total Bilirubin 0.9 AST 13 L ALT 29 Alkaline Phosphatase 43 L Ammonia 28 Total Creatine Kinase Troponin I Total Protein 6.0 L Albumin 2.9 L Urine Color Urine Clarity Urine pH Ur Specific [place] Urine Protein Urine Glucose (UA) Urine Ketones Urine Occult Blood Urine Nitrate Urine Bilirubin Urine Urobilinogen Ur Leukocyte Esterase Urine RBC Urine WBC Hyaline Casts Urine Mucus Ur Microscopic Review Urine Opiates Screen Ur Barbiturates Screen Ur Amphetamines Screen U Benzodiazepines Scrn Urine Cocaine Screen U Cannabinoids Screen Serum Alcohol - Imaging Impressions Head CT 08/11/18 16:39 CONCLUSION: 1. No acute findings. 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 . Chest CTA 08/11/18 18:26 CONCLUSION: 1. Negative for pulmonary embolus. Basilar dependent atelectasis in the lungs. Assessment and Plan - Assessment (1) Syncope Code(s): R55 - Syncope and collapse Status: Acute (2) Type II diabetes mellitus Code(s): E11.9 - Type 2 diabetes mellitus without complications Status: Chronic (3) Increased anion gap metabolic acidosis Code(s): E87.2 - Acidosis Status: Acute (4) Atrial fibrillation with RVR Code(s): I48.91 - Unspecified atrial fibrillation Status: Acute - Plan 57-year-old male with a history of diabetes, previous tentative diagnosis of seizures (it was thought at this time that it could be cardiac in nature, however no evidence on telemetry) in March of this year who presents with syncopal episode while driving, atrial fibrillation with RVR. Supraventricular tachycardia With syncopal episode -Likely atrial fibrillation with RVR -Echocardiogram March of this year shows ejection fraction 65-70% with no wall motion abnormalities. -CTA negative for PE Much improved on diltiazem drip, off of gtt now -Cardiology consult pending -We will check orthostatics -[id number], defer OAC to cardiology Previous history of seizures. -Please note that patient was informed that he was not to drive on previous admission in March. -Patient reportedly on Keppra. It is unlikely that patient seizures are actually seizures but rather that it is cardiac arrhythmia as above. Will await home medication reconciliation. -Continue Keppra 500 mg p.o. twice daily Seizure precaution Anion gap metabolic acidosis possibly secondary to tachycardia. Normal saline @ 125, discontinue today -CO2 today 23.5. Ammonia level elevated on admission, 62 No history of alcohol abuse, no confusion. Ammonia level back to normal Tobacco abuse. -Cessation counseling provided. Diabetes mellitus -Diabetic diet -Accu-Cheks with sliding scale History of hypertension. Blood pressure acceptable -Continue Prinivil We will wait for recommendations from cardiology. 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
--- NOTE | 2018-08-12 14:51 | ECG ---
Date Performed: 08/11/2018 Time Performed: 16:37:51 PTAGE: 57 years EKG: ATRIAL FIBRILLATION WITH RAPID VENTRICULAR RESPONSE NONSPECIFIC ST & T-WAVE ABNORMALITY Sin ce the previous tracing, no significant change noted ABNORMAL RHYTHM ECG NO PREVIOUS TRACING DOCTOR: Rodney Singh Interpretating Date/Time 08/12/2018 14:48:30
--- NOTE | 2018-08-12 23:03 | MB ---
cc: Jelani Celaya DO DATE: 08/12/2018 REASON FOR CONSULTATION: Syncopal episode, atrial fibrillation. HISTORY OF PRESENT ILLNESS: Niles Bright is a pleasant 57-year-old Mandarin-speaking male who presented to [facility] Emergency Room after a syncopal episode. Apparently, the patient had 5 episodes over the past few months. The only one that was witnessed was the first one that his saw where he clenched his teeth, bit his tongue, and was shaking. The other time that he was here at [place], he had a similar-type episode where he started noticing a feeling coming on and maybe some palpitations and then pulled his car over, parked it, and passed out. The episode that brought him in on this occasion was similar to that episode where he felt something come on, felt like he was going to pass out, and then found himself awakening in his truck after he had parked it. He was previously diagnosed with seizures, but on this time came in with atrial fibrillation with rapid ventricular response. He was started on a Cardizem drip and has since converted back to sinus rhythm. PAST MEDICAL HISTORY: 1. Hypertension. 2. Diabetes mellitus. 3. Seizures. 4. Hyperlipidemia. 5. Peripheral artery disease. PAST SURGICAL HISTORY: Denies. ALLERGIES: NO KNOWN DRUG ALLERGIES. MEDICATIONS: 1. Lisinopril 10 mg daily. 2. Levemir 12 units every 12 hours. 3. Metformin 1000 mg b.i.d. 4. Glipizide 5 mg b.i.d. 5. Keppra 500 mg b.i.d. FAMILY HISTORY: Denies premature coronary artery disease or sudden cardiac within the family. SOCIAL HISTORY: The patient smokes cigarettes daily. Admits to alcohol occasionally. Denies drug abuse. REVIEW OF SYSTEMS: Fourteen systems were reviewed including osteopathic. Pertinent positives and negatives above. Otherwise negative. PHYSICAL EXAMINATION: VITAL SIGNS: Temperature 98.0, heart rate 83, blood pressure 142/82, respirations 20, pulse oximetry 98% on room air. GENERAL: The patient appears well, in no acute distress. Alert, awake, and oriented x3. HEENT: Extraocular muscles intact. Mucous membranes are moist. NECK: Supple. No JVD at 45 degrees. No carotid bruits heard bilaterally. Carotid upstroke is brisk in nature. HEART: Regular rate and rhythm. Positive first and second heart sounds with no murmurs, gallops, or rubs. LUNGS: Clear to auscultation bilaterally. No wheezes, rales, or rhonchi. ABDOMEN: Soft, nontender, nondistended. No organomegaly noted. EXTREMITIES: No clubbing, cyanosis, or edema. Femoral and distal pulses are intact bilaterally. NEUROLOGIC: No focal deficits. SKIN: Warm, dry, and intact. OSTEOPATHIC: No kyphoscoliosis, lordosis, or paraspinal tender points. LABORATORY DATA: Hemoglobin 14.0, hematocrit 39.8, platelets 200. Potassium 3.8, BUN 15, creatinine 1.01. Troponin less than 0.02. Electrocardiogram (08/11/2018 at 1637): Atrial fibrillation with rapid ventricular response, nonspecific ST-T wave changes. IMPRESSION: 1. Syncopal episode. 2. History of seizures. 3. New-onset atrial fibrillation with rapid ventricular response, CHADS-VASc score equals 2. 4. Diabetes mellitus. 5. Hypertension. 6. Tobacco abuse. RECOMMENDATIONS: 1. Mr. Bright presented with another syncopal episode. Also, his syncopal episode seemed to have the same kind of picture. In the first one he had notable shaking, clenching of his teeth, and biting of his tongue. 2. Ultimately, this syncopal episode may be due to atrial fibrillation with rapid ventricular response, but he would need an extensive heart rate to possibly cause this, which would be less likely. 3. He did tell me that he does take his Keppra, but he has no idea how much or how often he takes it, and so he may not be taking it as directed, and this could have led to his seizure as all 5 episodes have been in a similar type range. 4. He does have a CHADS-VASc score of 2, but for now, I would not plan on placing him on anticoagulation until it is further determined possibility of seizure activity, which could lead to further syncopal episodes and possibly intracranial bleeding. 5. As he was directed before, I once again discussed with him that he should not drive until he is 6 months' free of seizures or syncopal episodes. 6. Depending on his course, may need to have EP cardiology see him for further considerations of an EP study to try to induce any tachyarrhythmias as possible other than atrial fibrillation. 7. My only concern with placing the blame here on atrial fibrillation is that his heart rate was 150 beats per minute while in the emergency room and he was asymptomatic, and so without a significant lesion whether valvular or carotid, I would find it hard to believe that he was passing out from an elevated heart rate. 8. I spoke to him for greater than 3 minutes about tobacco cessation. Thank you for allowing me to see Deangelo Cage. If there are any questions, please do not hesitate to call. DO AVRIL Ortega/ada , 10:29 PM , 10:41 PM
[2018-08-13] MEDS: Insulin NovoLOG Aspart Correctional Sugar Inj SQ SCH ×4 (08:22→20:04)
[2018-08-13] MEDS: dilTIAZem 30 MG Tablet PO SCH ×4 (09:11→20:01)
[2018-08-13] MEDS: levETIRAcetam 500 MG Tablet PO SCH ×2 (09:11→20:00)
[2018-08-13] MEDS: Lisinopril 10 MG Tablet PO SCH (09:11)
--- NOTE | 2018-08-13 10:02 | P.PN ---
Subjective Interval history: Follow-up for syncope, A. fib-patient seen and examined, used [employer] silhouette artist to communicate. Patient sitting up in chair, has no complaints. No palpitations, no chest pain, no shortness of breath, no syncopal episodes. He was seen by embossing machine operator yesterday. Sinus rhythm on the monitor, no more episodes of A. fib. Patient has no questions when asked. I questioned him in depth about his medication compliance. Indicates that he takes Keppra once a day when he gets up in the morning. He was not aware he was supposed to take it twice a day. Indicates that he did not know he was not supposed to be driving. 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 Physical Exam Vital signs: Vital Signs 08/12/18 12:00 08/12/18 12:18 08/12/18 16:30 Temperature 98.0 F 98.2 F Pulse Rate 78 68 68 Respiratory Rate 20 16 Blood Pressure 150/90 H 108/64 Pulse Oximetry 98 08/12/18 17:03 08/12/18 20:00 08/12/18 20:35 Temperature 97.8 F Pulse Rate 63 61 63 Respiratory Rate 16 Blood Pressure 134/72 Pulse Oximetry 100 08/13/18 00:00 08/13/18 04:00 08/13/18 08:00 Temperature 98.1 F 97.8 F 97.9 F Pulse Rate 60 54 L 60 Respiratory Rate 18 18 20 Blood Pressure 127/77 113/71 137/78 Pulse Oximetry 98 96 98 Intake & Output 08/12/18 08/13/18 08/13/18 18:59 06:59 18:59 Intake Total 2089 Balance 2089 Weight 76.4 kg Intake: IV 1250 / 1250 NS Inj 1,000 ML @ 125 mls/hr IV 1250 / 1250 .CONT .Q8H NELIA Rx#:[id number] Oral 840 / 840 Other: # Voids 2 3 # Bowel Movements 1 Narrative: GENERAL: Patient sitting up in bed. Appears comfortable. Alert and oriented x3. SKIN: Warm and dry. HEAD: Atraumatic. Normocephalic. EYES: Pupils equal and round. No scleral icterus. No injection or drainage. ENT: No nasal bleeding or discharge. Mucous membranes pink and moist. NECK: Trachea midline. No JVD. CARDIOVASCULAR: S1-S2, RRR, no rubs, no murmurs, no gallop RESPIRATORY: No accessory muscle use. Clear to auscultation. Breath sounds equal bilaterally. GASTROINTESTINAL: Abdomen soft, non-tender, nondistended. Hepatic and splenic margins not palpable. MUSCULOSKELETAL: Extremities without clubbing, cyanosis, or edema. No obvious deformities. NEUROLOGICAL: Awake and alert. No obvious cranial nerve deficits. Motor grossly within normal limits. Five out of 5 muscle strength in the arms and legs. 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. PSYCHIATRIC: Appropriate mood and affect; insight and judgment normal. Results - Labs CBC & Chem 7: 08/12/18 09:19 08/13/18 08:35 Laboratory Results - last 24 hr 08/12/18 08/12/18 08/12/18 09:19 11:36 17:36 Sodium 139 Potassium 3.8 Chloride 105 Anion Gap 11 POC Glucose 211 H 88 Total Bilirubin 0.9 ALT 29 Alkaline Phosphatase 43 L Total Protein 6.0 L 08/12/18 19:35 Sodium Potassium Chloride Anion Gap POC Glucose 135 H Total Bilirubin ALT Alkaline Phosphatase Total Protein Assessment and Plan - Assessment (1) Syncope Code(s): R55 - Syncope and collapse Status: Acute (2) Type II diabetes mellitus Code(s): E11.9 - Type 2 diabetes mellitus without complications Status: Chronic (3) Increased anion gap metabolic acidosis Code(s): E87.2 - Acidosis Status: Acute (4) Atrial fibrillation with RVR Code(s): I48.91 - Unspecified atrial fibrillation Status: Acute - Plan 57-year-old male with a history of diabetes, previous tentative diagnosis of seizures (it was thought at this time that it could be cardiac in nature, however no evidence on telemetry) in March of this year who presents with syncopal episode while driving, atrial fibrillation with RVR. Supraventricular tachycardia With syncopal episode-Poss sec. to afib RVR -Echocardiogram March of this year shows ejection fraction 65-70% with no wall motion abnormalities. -CTA negative for PE Much improved on diltiazem drip, off of gtt now. Started on Cardizem PO per card. -Appreciate card input, d/w Dr. Celaya. For pt. to have a syncopal episode, HR would have to be excessively elevated. He needs further work up. He will discuss with Dr. Hammond. Requests that we keep NPO today. -[id number], until work up completed, OAC not advisable. Pt. has been driving and climbing ladders while having syncopal episodes, he is at risk for trauma, ie brain bleed. -cont. telemetry -remains SR, no afib noted. Will wait for further card input. Previous history of seizures. Patient has not been following instructions, states that he has been taking Keppra only once a day. -Please note that patient was informed that he was not to drive on previous admission in March. -Continue Keppra 500 mg p.o. twice daily Seizure precaution -I discussed [employer] silhouette artist the necessity to avoid driving, no climbing ladders, no swimming, no operating machinery. Patient verbalizes understanding. Anion gap metabolic acidosis possibly secondary to tachycardia. Normal saline @ 125, discontinue today -CO2 today 23.5. Ammonia level elevated on admission, 62 No history of alcohol abuse, no confusion. Ammonia level back to normal Tobacco abuse. -Cessation counseling provided. Diabetes mellitus -Diabetic diet -Accu-Cheks with sliding scale History of hypertension. Blood pressure acceptable -Continue Prinivil We will wait for recommendations from cardiology. 1700-- went back to room to d/w pt and along with Dr. Celaya to discuss plan of care. [employer] silhouette artist utilized. Pt. going for loop recorder. He and verbalized understanding. Again discussed with in regards to Keppra, they did not understand instructions during prior admission. Explained that he was seen by Dr. Menendez and dosage was increased. Again it was emphasized that he is not allowed to drive or climb ladders. She verbalizes understanding and agrees to follow with discharge plan. Code Status: Full code Discussed Condition With: RN, pt Discharge Planning: Poss dc tomorrow if no procedures done (1) Syncope Qualifiers: Syncope type: unspecified Qualified Code(s): R55 - Syncope and collapse (2) Type II diabetes mellitus Qualifiers: Diabetes mellitus terminal worker insulin use: unspecified terminal worker insulin use status
[2018-08-13 10:49] LABS: Anion Gap 7 meq/L (5-15); Blood Urea Nitrogen 15 mg/dL (7-18); Calcium 8.7 mg/dL (8.5-10.1); Carbon Dioxide 27.1 meq/L (21.0-32.0); Chloride 109 meq/L (98-107); Glomerular Filtration Rate Greater Than 89 mL/min (>89); Glucose,Random 80 mg/dL (74-106); Potassium 4.3 meq/L (3.5-5.1); Sodium 143 meq/L (136-145)
[2018-08-13] MEDS: glipiZIDE 5 MG Tablet PO SCH ×2 (11:49→17:48)
[2018-08-13] MEDS: Insulin Detemir Inj 1,000 UNIT/10 ML Vial SQ SCH ×2 (11:50→20:04)
--- NOTE | 2018-08-13 22:05 | P.PNCA ---
Subjective Interval history: Evaluated with Carito Vargas using medical center representative No complaints Medications and Allergies Active Medications: Active Medications Al Hydroxide/Mg Hydroxide (Milk Of Magnesia Liq) 30 ml PO Q12H PRN PRN Reason: Mild Constipation Bisacodyl (Dulcolax Supp) 10 mg RECTAL DAILY PRN PRN Reason: SEVERE CONSITIPATION Dextrose (D50w Vial) 50 ml IV.PUSH UNSCH PRN PRN Reason: PER HYPOGLYCEMIA PROTOCOL Diltiazem HCl (Cardizem) 30 mg PO QID [facility] Last Admin: 08/13/18 20:01 Dose: 30 mg Glipizide (Glucotrol) 5 mg PO BIDAC [facility] Last Admin: 08/13/18 17:48 Dose: 5 mg Glucagon (Glucagon Inj) 1 mg OTHER PRN PRN PRN Reason: for Hypoglycemia Protocol Insulin Aspart (Novolog Insulin Correctional Sugar Inj) 0 unit SQ [facility]; Protocol Last Admin: 08/13/18 20:04 Dose: 5 unit Insulin Detemir (Levemir Inj) 12 unit SQ Q12HR [facility] Last Admin: 08/13/18 20:04 Dose: 12 unit Lactulose (Lactulose Liq) 30 ml PO DAILY PRN PRN Reason: SEVERE CONSITIPATION Levetiracetam (Keppra) 1,000 mg PO BID [facility] Last Admin: 08/13/18 20:00 Dose: 1,000 mg Lisinopril (Prinivil) 10 mg PO DAILY [facility] Last Admin: 08/13/18 09:11 Dose: 10 mg [facility] Last Admin: 08/13/18 17:48 Dose: 1,000 mg Sennosides (Senokot) 17.2 mg PO Q12H PRN PRN Reason: Moderate Constipation Last Admin: 08/12/18 09:50 Dose: 17.2 mg Sodium Chloride (Ns Flush) 2 ml IV.FLUSH PRN PRN PRN Reason: FLUSH AFTER USING IV ACCESS Last Admin: 08/11/18 17:17 Dose: 2 ml Allergies Allergy/AdvReac Type Severity Reaction Status Date / Time No Known Allergies Allergy Verified 08/11/18 20:03 Home Medications Medication Instructions Recorded Confirmed Type glipizide 5 mg PO BIDAC 08/11/18 08/11/18 History insulin detemir U-100 [Levemir 12 unit SUBCUT Q12HR 08/11/18 08/11/18 History U-100 Insulin] levetiracetam [Keppra] 500 mg PO BID 08/11/18 08/11/18 History lisinopril 10 mg PO DAILY 08/11/18 08/11/18 History metformin 1,000 mg PO BIDPC 08/11/18 08/11/18 History mupirocin 1 applic TOPICAL TID 08/11/18 08/11/18 History Physical Exam Vital signs: Vital Signs 08/13/18 00:00 08/13/18 04:00 08/13/18 08:00 Temperature 98.1 F 97.8 F 97.9 F Pulse Rate 60 54 L 60 Respiratory Rate 18 18 20 Blood Pressure 127/77 113/71 137/78 Pulse Oximetry 98 96 98 08/13/18 09:00 08/13/18 12:00 08/13/18 12:15 Temperature 97.8 F Pulse Rate 70 55 L 59 L Respiratory Rate 16 Blood Pressure 111/72 Pulse Oximetry 98 08/13/18 15:35 08/13/18 16:00 08/13/18 20:00 Temperature 98 F 98.1 F 98.1 F Pulse Rate 59 L 61 62 Respiratory Rate 16 16 18 Blood Pressure 112/70 104/68 97/56 L Pulse Oximetry 99 95 Intake & Output 08/13/18 08/13/18 08/14/18 06:59 18:59 06:59 Intake Total 0 / 0 Output Total 1300 / 1300 Balance -1300 / -1300 Weight 76.4 kg Intake: Oral 0 / 0 Output: Urine 1300 / 1300 Other: # Voids 3 # Bowel Movements 0 Narrative: GENERAL: Patient sitting up in bed. Appears comfortable. Alert and oriented x3. SKIN: Warm and dry. HEAD: Atraumatic. Normocephalic. EYES: Pupils equal and round. No scleral icterus. No injection or drainage. ENT: No nasal bleeding or discharge. Mucous membranes pink and moist. NECK: Trachea midline. No JVD. CARDIOVASCULAR: S1-S2, RRR, no rubs, no murmurs, no gallop RESPIRATORY: No accessory muscle use. Clear to auscultation. Breath sounds equal bilaterally. GASTROINTESTINAL: Abdomen soft, non-tender, nondistended. Hepatic and splenic margins not palpable. MUSCULOSKELETAL: Extremities without clubbing, cyanosis, or edema. No obvious deformities. NEUROLOGICAL: Awake and alert. No obvious cranial nerve deficits. Motor grossly within normal limits. Five out of 5 muscle strength in the arms and legs. 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. PSYCHIATRIC: Appropriate mood and affect; insight and judgment normal. Results 08/12/18 09:19 08/13/18 08:35 Cardiac Enzymes 08/12/18 Range/Units 09:19 AST 13 L (15-37) U/L CBC 08/12/18 Range/Units 09:19 WBC 7.1 (4.0-11.0) th/mm3 RBC 4.42 L (4.50-5.90) mil/mm3 Hgb 14.0 (13.0-17.0) gm/dL Hct 39.8 (39.0-51.0) % Plt Count 200 (150-450) th/mm3 Neut # (Auto) 5.2 (1.8-7.7) th/mm3 Lymph # (Auto) 1.3 (1.0-4.8) th/mm3 [place] # (Auto) 0.3 (0.0-0.9) th/mm3 Eos # (Auto) 0.3 (0.0-0.4) th/mm3 Baso # (Auto) 0.0 (0.0-0.2) th/mm3 Comprehensive Metabolic Panel 08/12/18 08/13/18 Range/Units 09:19 08:35 Sodium 139 143 (136-145) meq/L Potassium 3.8 4.3 (3.5-5.1) meq/L Chloride 105 109 H (98-107) meq/L Carbon Dioxide 23.5 27.1 (21.0-32.0) meq/L BUN 15 15 (7-18) mg/dL Creatinine 1.01 0.81 (0.60-1.30) mg/dL Calcium 7.6 L 8.7 D (8.5-10.1) mg/dL AST 13 L (15-37) U/L ALT 29 (12-78) U/L Alkaline Phosphatase 43 L (45-117) U/L Total Protein 6.0 L (6.4-8.2) g/dL Albumin 2.9 L (3.4-5.0) g/dL Intake and Output 08/13/18 08/13/18 08/13/18 06:59 14:59 22:59 Intake Total 0 / 0 Output Total 1300 / 1300 Balance -1300 / -1300 Intake: Oral 0 / 0 Output: Urine 1300 / 1300 Other: # Voids 3 # Bowel Movements 0 Weight 76.4 kg Assessment and Plan - Assessment (1) Seizure Code(s): R56.9 - Unspecified convulsions Status: Acute (2) Atrial fibrillation with RVR Code(s): I48.91 - Unspecified atrial fibrillation Status: Acute (3) Syncope Code(s): R55 - Syncope and collapse Status: Acute (4) Type II diabetes mellitus Code(s): E11.9 - Type 2 diabetes mellitus without complications Status: Chronic - Plan 1) Syncopal episodes Complex case Discussed in detail with patient that he should not be driving or climbing ladders 2) Possible seizure Neurology evaluated Plan to increase Keppra, plus discussed with him that he needs to take as instructed 3) Afib with RVR Concern for significant arrhythmia causing syncopal episodes Continue Cardizem Can be changed to Cardizem CD 120mg daily on discharge Plan for loop recorder placement Concern for language barrier if my office calls them to let him know there is a problem with his rate/rhythm will supply her number, as she understands some Vincentian, and if told that they need to come to the ER due to "heart not working right" she can understand Discussed placing him on anticoagulation, but my concern with his syncopal episodes, they agree to hold off due to concern (3) Syncope Qualifiers: Syncope type: unspecified Qualified Code(s): R55 - Syncope and collapse (4) Type II diabetes mellitus Qualifiers: Diabetes mellitus correction insulin use: unspecified correction insulin use status
--- NOTE | 2018-08-14 07:18 | MB ---
cc: Phuc Menendez MD, PhD DATE: 08/13/2018 REASON FOR CONSULTATION: Possible seizure, presyncope. HISTORY OF PRESENT ILLNESS: This is a 57-year-old man who has a history of diabetes, hyperlipidemia, hypertension. He speaks Mandarin, so the history is obtained from the chart. Apparently came to the ER after he felt heart palpitations, felt as though he might pass out. He was driving, so he pulled over to the side of the road. No definite seizure activity was identified. When EVAC found him, he was alert, able to open his doors. Apparently, he does have a history of seizure disorder for which he does take Keppra. PAST MEDICAL HISTORY: History of diabetes, hyperlipidemia, hypertension, history of seizure disorder. NEUROLOGIC EXAMINATION: VITAL SIGNS: His blood pressure is 111/72, pulse 55, respirations are 16, temperature 97 degrees. HIGHER CORTICAL FUNCTION: He is alert. This is limited because of the language barrier. Cranial nerves intact. Motor exam is 5/5 in all groups. There is no drift. Reflexes are 2+ symmetric. IMAGING STUDIES: 1. CT brain, no acute change. 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 Prior lacunar infarct, left basal ganglia. 2. Chest CTA negative for PE. LABORATORY DATA: The white count is 7100, hemoglobin 14, hematocrit 39.8%, platelet count 200,000. Sodium is 139, potassium 3.8, chloride 105, CO2 23.5, BUN 15, creatinine 1.01, GFR 77, glucose 211, calcium 7.6, ammonia 28, AST 13, ALT is 29. UA: PH is 5, specific gravity 1.012, protein, negative, glucose, 500 or greater, trace ketones identified, 1 WBC is identified. Tox screen negative. Alcohol level was 4. IMPRESSION: History of seizure disorder. The current episode; however, suggestive more of presyncope, not seizure. The patient has already had an evaluation previously. CT shows old strokes, but no acute change. At the present I would recommend continuing his Keppra, would recommend 1000 mg b.i.d. Phuc Menendez MD, PhD TALIB/alber , 03:18 PM , 03:26 PM
[2018-08-14] MEDS: levETIRAcetam 500 MG Tablet PO SCH (08:43)
[2018-08-14] MEDS: Lisinopril 10 MG Tablet PO SCH (08:44)
[2018-08-14] MEDS: dilTIAZem 30 MG Tablet PO SCH ×2 (08:44→12:48)
[2018-08-14] MEDS: glipiZIDE 5 MG Tablet PO SCH (08:44)
[2018-08-14] MEDS: Insulin NovoLOG Aspart Correctional Sugar Inj SQ SCH ×2 (08:49→12:30)
[2018-08-14] MEDS: Insulin Detemir Inj 1,000 UNIT/10 ML Vial SQ SCH (08:50)
[2018-08-14] MEDS ORDERED: Chlorhexidine Gluconate 2% 1 Pack (2 Cloths) TOPICAL SCH (11:45)
[2018-08-14] MEDS ORDERED: Mupirocin 2% Nasal Oint Topical Syringe EACH NARE SCH (11:45)
--- NOTE | 2018-08-14 11:48 | P.PN ---
Subjective Interval history: Follow-up for syncope, A. 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 Patient states he had a good night, slept well. No chest pain, no shortness of breath, no palpitations, no dizziness. Remains sinus bradycardia on the monitor. Going for loop recorder placement today. Patient concerned that he will not have anything to eat until procedure. Emphasized not to eat anything until procedure is done or he may delay discharge. Physical Exam Vital signs: Vital Signs 08/13/18 12:00 08/13/18 12:15 08/13/18 15:35 Temperature 97.8 F 98 F Pulse Rate 55 L 59 L 59 L Respiratory Rate 16 16 Blood Pressure 111/72 112/70 Pulse Oximetry 98 08/13/18 16:00 08/13/18 20:00 08/14/18 00:00 Temperature 98.1 F 98.1 F 97.2 F L Pulse Rate 61 56 L 64 Respiratory Rate 16 18 18 Blood Pressure 104/68 97/56 L 149/91 H Pulse Oximetry 99 95 96 08/14/18 04:00 08/14/18 08:00 Temperature 97.9 F 97.8 F Pulse Rate 60 57 L Respiratory Rate 18 20 Blood Pressure 113/64 107/59 L Pulse Oximetry 96 95 Intake & Output 08/13/18 08/14/18 08/14/18 18:59 06:59 18:59 Intake Total 0 / 0 Output Total 1300 / 1300 Balance -1300 / -1300 Intake: Oral 0 / 0 Output: Urine 1300 / 1300 Other: # Bowel Movements 0 Narrative: GENERAL: 57-year-old well-developed well-nourished, no apparent distress SKIN: Warm and dry. HEAD: Atraumatic. Normocephalic. EYES: Pupils equal and round. No scleral icterus. No injection or drainage. NECK: Trachea midline. No JVD. CARDIOVASCULAR: S1-S2, RRR, no rubs, no murmurs, no gallop RESPIRATORY: No accessory muscle use. Clear to auscultation. Breath sounds equal bilaterally. GASTROINTESTINAL: Abdomen soft, non-tender, nondistended. Hepatic and splenic margins not palpable. MUSCULOSKELETAL: Extremities without clubbing, cyanosis, or edema. No obvious deformities. NEUROLOGICAL: Awake and alert. No obvious cranial nerve deficits. Motor grossly within normal limits. Five out of 5 muscle strength in the arms and legs. 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. PSYCHIATRIC: Appropriate mood and affect; insight and judgment normal. Results - Labs CBC & Chem 7: 08/12/18 09:19 08/13/18 08:35 Assessment and Plan - Assessment (1) Syncope Code(s): R55 - Syncope and collapse Status: Acute (2) Type II diabetes mellitus Code(s): E11.9 - Type 2 diabetes mellitus without complications Status: Chronic (3) Increased anion gap metabolic acidosis Code(s): E87.2 - Acidosis Status: Acute (4) Atrial fibrillation with RVR Code(s): I48.91 - Unspecified atrial fibrillation Status: Acute - Plan 57-year-old male with a history of diabetes, previous tentative diagnosis of seizures (it was thought at this time that it could be cardiac in nature, however no evidence on telemetry) in March of this year who presents with syncopal episode while driving, atrial fibrillation with RVR. Supraventricular tachycardia With syncopal episode-Poss sec. to afib RVR -Echocardiogram March of this year shows ejection fraction 65-70% with no wall motion abnormalities. -CTA negative for PE Much improved on diltiazem drip, off of gtt now. Started on Cardizem PO per card. -[id number], until work up completed, OAC not advisable. Pt. has been driving and climbing ladders while having syncopal episodes, he is at risk for trauma, ie brain bleed. -cont. telemetry -remains SR, no afib noted. -Appreciate cardiology input, patient going for loop recorder placement today. Dr. Celaya discussed procedure in detail yesterday, patient and verbalized understanding. Previous history of seizures. Patient has not been following instructions, states that he has been taking Keppra only once a day. -Please note that patient was informed that he was not to drive on previous admission in March. -Continue Keppra 500 mg p.o. 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 Patient verbalizes understanding. -Neurology consulted, discussed with Dr. Menendez yesterday. Keppra increased to thousand milligrams p.o. twice daily. -Discussed with patient and in detail yesterday, apparently they did not understand instructions very well. appears to have a better grasp and verbalized understanding about pt. taking the Keppra twice a day and avoiding driving and climbing ladders. Anion gap metabolic acidosis possibly secondary to tachycardia. Resolved Given NS -CO2 stabilized 23.5. Ammonia level elevated on admission, 62 No history of alcohol abuse, no confusion. Ammonia level back to normal Tobacco abuse. -Cessation counseling provided. Diabetes mellitus -Diabetic diet -Accu-Cheks with sliding scale History of hypertension. Blood pressure acceptable -Continue Prinivil Plan to dc after loop recorder Code Status: Full code Discussed Condition With: RN, pt, CM Discharge Planning: Plan to dc today after loop recorder if no complications (1) Syncope Qualifiers: Syncope type: unspecified Qualified Code(s): R55 - Syncope and collapse (2) Type II diabetes mellitus Qualifiers: Diabetes mellitus intermediate manager insulin use: unspecified nursing home insulin use status
[2018-08-14] MEDS ORDERED: ceFAZolin 2 GM Premix Inj 2 GM/50 ML PIGGYBACK IV.SIG SCH (12:00)
--- NOTE | 2018-08-14 17:27 | P.DS ---
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 57-year-old male with a history of diabetes mellitus, hyperlipidemia, hypertension, possible seizure in May of this year for which she was started on Keppra he was brought in by EMS this afternoon due to acute syncopal episode , found to have PSVT by E back, atrial fibrillation with RVR on EKG here. Patient says he felt fine prior to this event. He was driving, felt lightheaded , pulled over to the side of the road and passed out in his vehicle. He denies any chest pain, shortness of breath. He has been given Cardizem drip with improvement in heart rate. He says he currently feels much better. DS: Diagnosis - Discharge Diagnosis (1) Syncope Status: Acute (2) Type II diabetes mellitus Status: Chronic (3) Increased anion gap metabolic acidosis Status: Acute (4) Atrial fibrillation with RVR Status: Acute DS: Medications - Discharge Medications Prescriptions: diltiazem HCl [Cardizem CD] 120 mg PO DAILY 30 Days #30 cap glipizide [Glucotrol] 5 mg PO BIDAC 30 Days #60 tab insulin detemir U-100 [Levemir U-100 Insulin] 12 unit SUBCUT Q12HR 30 Days #100 units levetiracetam [Keppra] 1,000 mg PO BID 30 Days #120 tab lisinopril 10 mg PO DAILY 30 Days #30 tab metformin 1,000 mg PO BIDPC 30 Days #60 tab DS: Summary Hospital Course: 57-year-old male with a history of diabetes mellitus, hyperlipidemia, hypertension, possible seizure in May of this year for which she was started on Keppra he was brought in by EMS this afternoon due to acute syncopal episode , found to have PSVT by [facility]. Atrial fibrillation with RVR on EKG in ED. Patient says he felt fine prior to this event. He was driving, felt lightheaded , pulled over to the side of the road and passed out in his vehicle. He denies any chest pain, shortness of breath. He was been given Cardizem drip with improvement in heart rate. Pt. had been admitted back in March with syncope and found that it was due to seizure. Pt. admitted, put on telemetry. Cardiology consulted. It was not clear whether A. fib with RVR caused syncope.Echocardiogram March of this year showed ejection fraction 65-70% with no wall motion abnormalities. CTA negative for PE. He had no recurrence of A. fib with RVR, he was put on p.o. Cardizem by cardiology. [id number], until work up completed, OAC not advisable. Pt. had been driving and climbing ladders while having syncopal episodes, he is at risk for trauma, ie brain bleed. 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 Recommended placement of loop recorder. Patient underwent loop recorder placement without any complications. Extensive education was provided to him and his via rail tractor operator. It was also discovered that patient was not taking Keppra appropriately, he was only taking it once a day. Patient was also driving. Computer Programming Supervisor services were used extensively to certified lactation counselor patient and about the need to abstain from driving and climbing ladders. They both verbalized understanding. Neurology consultation was requested. Dr. Menendez evaluated an increase Keppra to 1000 mg p.o. twice daily. During his initial laboratory workup, he was found with Anion gap metabolic acidosis possibly secondary to tachycardia. Patient was given IV fluids and this resolved. Patient stabilized, no syncope, no A. fib with RVR. Extensive education was done with patient and using rail tractor operator. Pt. was discharged home in stable condition. Instructed to f/u with cardiology, PCP and neurology. - Time Spent with Patient Total time spent providing and/or coordinating discharge services: 60 minutes Greater than 30 minutes - Quality: VTE Deep Vein Thrombosis/Pulmonary Embolism Present on Admission: No Exam Vital signs: Vital Signs 08/13/18 20:00 08/14/18 00:00 08/14/18 04:00 Temperature 98.1 F 97.2 F L 97.9 F Pulse Rate 56 L 64 60 Respiratory Rate 18 Blood Pressure 97/56 L 149/91 H 113/64 Pulse Oximetry 95 96 96 08/14/18 08:00 08/14/18 12:00 Temperature 97.8 F Pulse Rate 53 L 66 Respiratory Rate 20 Blood Pressure 107/59 L Pulse Oximetry 95 Intake & Output 08/13/18 08/14/18 08/14/18 18:59 06:59 18:59 Intake Total 0 / 0 50 / 50 Output Total 1300 / 1300 Balance -1300 / -1300 50 / 50 Intake: IV 50 / 50 Ancef 2 GM Premix Inj 2 gm In 50 / 50 50 ml @ 100 mls/hr IV.SIG ANIMAL GENETICIST [facility] Rx#:[id number] Oral 0 / 0 Output: Urine 1300 / 1300 Other: # Bowel Movements 0 Results Procedures completed during hospitalization: NONE Labs on day of discharge: Labs from last 24 hours 08/14/18 12:23 POC Glucose 65 L - Impressions ITS Impressions Head CT 08/11/18 16:39 CONCLUSION: 1. No acute findings. 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 . Chest CTA 08/11/18 18:26 CONCLUSION: 1. Negative for pulmonary embolus. Basilar dependent atelectasis in the lungs. Discharge Plan - Discharge Disposition Patient Disposition: Discharge Home - Discharge Condition Condition: Stable - Discharge Order Discharge Orders: Discharge Order (Routine); Ordered 08/14/18 Ordered By: Carito Vargas - Discharge Details Anticipated Discharge Date: 08/14/18 - Physicians Team Primary Care Provider: Primary Care Primoi,No Attending Provider: Iram Eric Other Providers: Donald Arguelles MD ; Phuc Menendez MD, PhD
--- NOTE | 2018-08-14 18:41 | P.PNCA ---
Subjective Interval history: Post-Loop recorder placement No complaints Medications and Allergies Allergies Allergy/AdvReac Type Severity Reaction Status Date / Time No Known Allergies Allergy Verified 08/11/18 20:03 Home Medications Medication Instructions Recorded Confirmed Type glipizide 5 mg PO BIDAC 08/11/18 08/11/18 History mupirocin 1 applic TOPICAL TID 08/11/18 08/11/18 History Physical Exam Vital signs: Vital Signs 08/13/18 20:00 08/14/18 00:00 08/14/18 04:00 Temperature 98.1 F 97.2 F L 97.9 F Pulse Rate 56 L 64 60 Respiratory Rate 18 18 18 Blood Pressure 97/56 L 149/91 H 113/64 Pulse Oximetry 95 96 96 08/14/18 08:00 08/14/18 12:00 Temperature 97.8 F Pulse Rate 53 L 66 Respiratory Rate 20 Blood Pressure 107/59 L Pulse Oximetry 95 Intake & Output 08/13/18 08/14/18 08/14/18 18:59 06:59 18:59 Intake Total 0 / 0 50 / 50 Output Total 1300 / 1300 Balance -1300 / -1300 50 / 50 Intake: IV 50 / 50 Ancef 2 GM Premix Inj 2 gm In 50 / 50 50 ml @ 100 mls/hr IV.SIG WOOD HEEL CEMENTER [facility] Rx#:[id number] Oral 0 / 0 Output: Urine 1300 / 1300 Other: # Bowel Movements 0 Narrative: GENERAL: 57-year-old well-developed well-nourished, no apparent distress SKIN: Warm and dry. HEAD: Atraumatic. Normocephalic. EYES: Pupils equal and round. No scleral icterus. No injection or drainage. NECK: Trachea midline. No JVD. CARDIOVASCULAR: S1-S2, RRR, no rubs, no murmurs, no gallop RESPIRATORY: No accessory muscle use. Clear to auscultation. Breath sounds equal bilaterally. GASTROINTESTINAL: Abdomen soft, non-tender, nondistended. Hepatic and splenic margins not palpable. MUSCULOSKELETAL: Extremities without clubbing, cyanosis, or edema. No obvious deformities. NEUROLOGICAL: Awake and alert. No obvious cranial nerve deficits. Motor grossly within normal limits. Five out of 5 muscle strength in the arms and legs. 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. PSYCHIATRIC: Appropriate mood and affect; insight and judgment normal. Results 08/12/18 09:19 08/13/18 08:35 Comprehensive Metabolic Panel 08/13/18 Range/Units 08:35 Sodium 143 (136-145) meq/L Potassium 4.3 (3.5-5.1) meq/L Chloride 109 H (98-107) meq/L Carbon Dioxide 27.1 (21.0-32.0) meq/L BUN 15 (7-18) mg/dL Creatinine 0.81 (0.60-1.30) mg/dL Calcium 8.7 D (8.5-10.1) mg/dL Intake and Output 08/14/18 08/14/18 08/14/18 06:59 14:59 22:59 Intake Total 50 / 50 Balance 50 / 50 Intake: IV 50 / 50 Ancef 2 GM Premix Inj 2 gm In 50 / 50 50 ml @ 100 mls/hr IV.SIG WOOD HEEL CEMENTER [facility] Rx#:[id number] Assessment and Plan - Assessment (1) Seizure Code(s): R56.9 - Unspecified convulsions Status: Acute (2) Atrial fibrillation with RVR Code(s): I48.91 - Unspecified atrial fibrillation Status: Acute (3) Syncope Code(s): R55 - Syncope and collapse Status: Acute (4) Type II diabetes mellitus Code(s): E11.9 - Type 2 diabetes mellitus without complications Status: Chronic - Plan 1) Syncopal episodes Complex case Discussed in detail with patient that he should not be driving or climbing ladders 2) Possible seizure Neurology evaluated Plan to increase Keppra, plus discussed with him that he needs to take as instructed 3) Afib with RVR Concern for significant arrhythmia causing syncopal episodes Continue Cardizem Can be changed to Cardizem CD 120mg daily on discharge Loop recorder placed Concern for language barrier if my office calls them to let him know there is a problem with his rate/rhythm will supply her number, as she understands some Armenian, and if told that they need to come to the ER due to "heart not working right" she can understand Discussed placing him on anticoagulation, but my concern with his syncopal episodes, they agree to hold off due to concern 4) Cardiovascularly stable for discharge (3) Syncope Qualifiers: Syncope type: unspecified Qualified Code(s): R55 - Syncope and collapse (4) Type II diabetes mellitus Qualifiers: Diabetes mellitus fpc insulin use: unspecified fpc insulin use status
--- NOTE | 2018-08-15 00:20 | MR ---
cc: Jelani Celaya DO DATE: 08/14/2018 PROCEDURE: Placement of a Medtronic Reveal LINQ (model number LNQ11, serial number [id number]). PREPROCEDURE DIAGNOSES: Atrial fibrillation, multiple syncopal episodes of unknown cause. POSTPROCEDURE DIAGNOSIS: Multiple episodes of syncope, status post Reveal LINQ loop recorder placement. MEDICATIONS: Ancef 2 g. ESTIMATED BLOOD LOSS: Minimal. PROCEDURAL SUMMARY: The patient is a pleasant 57-year-old male who presented to [facility] after having a syncopal episode. He has had multiple syncopal episodes in the past few months. The original episode sounded seizure-like, but the other ones dealt more with palpitations. On arrival, he was found to be in atrial fibrillation with RVR. Because of the unknown cause for his syncope, I felt that a loop recorder was his best option to determine if there are any malignant arrhythmias. Risks, benefits, and alternatives were described to him through a fitness technician, and he consented. He was brought to the holding area and prepped in the usual sterile fashion. Left chest wall was anesthetized with lidocaine. A small incision was made over the fourth intercostal. Loop recorder was injected under the skin. The patient tolerated the procedure well. HARDWARE: 1. Medtronic Reveal LINQ (model number LNQ11, serial number [id number]) 2. R-wave 0.82 millivolts. 3. Parameters: Tachycardia greater than 162 beats per minute, bradycardia less than 30 beats per minute, pause greater than 3 seconds. IMPRESSION: 1. Multiple episodes of syncope of unknown cause. 2. Atrial fibrillation with rapid ventricular response. RECOMMENDATIONS: 1. The patient underwent loop recorder placement for syncope. 2. From my standpoint, he can be discharged home later today. 3. Instructions were given to him over the fitness technician about how to use the system. If any episodes are noted as there is a language barrier, my office will call his who does speak some Belgian and will tell her that his heart is not doing well, and he needs to go to the hospital, and they understand what this means. Thank you for allowing me to see the patient. If there are any questions, please do not hesitate to call. DO AVRIL Ortega/ada , 11:11 PM , 11:27 PM
== END 2018-08-14 17:00 | disposition home or self-care (01) ==
LOC: NEPC 16:32 → NEDA 21:12 → N04 22:30
PROVIDERS: ADMIT Family Medicine; ATTEND Family Medicine